=== PATIENT | male | born 2000 | race Caucasian/White ===

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

== ENCOUNTER 2019-08-27 21:01 | Emergency (ER) | payer OTHER ==
[~2019-08-27] VITALS: Ht 177.8 cm; Wt 70.3 kg
[2019-08-27 21:42] LABS: BASOPHILS ABSOLUTE AUTO 0.06 K/mm3 (0.00-0.23); BASOPHILS PERCENT AUTO 1 % (0-2); EOSINOPHILS ABSOLUTE AUTO 0.09 K/mm3 (0.00-0.68); EOSINOPHILS PERCENT AUTO 1 % (0-6); Hematocrit 37.7 % (37.0-53.0); Hemoglobin 12.1 g/dL (13.5-17.5); IMMATURE GRAN ABSOLUTE AUTO 0.03 K/mm3 (0.00-0.10); IMMATURE GRAN PERCENT AUTO 0 % (0-1); LYMPHOCYTES ABSOLUTE AUTO 3.24 K/mm3 (0.84-5.20); LYMPHOCYTES PERCENT AUTO 34 % (21-46); MONOCYTES ABSOLUTE AUTO 0.97 K/mm3 (0.16-1.47); MONOCYTES PERCENT AUTO 10 % (4-13); Mean Corpuscular HGB 27.4 pg (26.0-34.0); Mean Corpuscular HGB Conc 32.1 g/dL (31.5-36.5); Mean Corpuscular Volume 85 fL (80-100); NEUTROPHILS ABSOLUTE AUTO 5.21 K/mm3 (1.96-9.15); NEUTROPHILS PERCENT AUTO 54 % (41-73); Platelet Count 317 K/mm3 (150-400); RDW Coefficient Variation 13.2 % (11.7-14.2); RDW Standard Deviation 41.3 fL (35.1-46.3); Red Blood Cell Count 4.42 M/mm3 (4.30-5.90)
[2019-08-27 21:55] LABS: Alanine Aminotransfer (ALT/SGP 43 U/L (12-78); Albumin, Blood 3.3 g/dL (3.4-5.0); Albumin/Globulin Ratio 0.8 (0.8-1.8); Alk Phos 86 U/L (58-237); Anion Gap 3 mmol/L (6-16); Aspartate Aminotrans (AST/SGOT 46 U/L (12-37); Bilirubin, Total 0.5 mg/dL (0.1-1.0); Blood Urea Nitrogen 11 mg/dL (8-21); Bun/Creatinine Ratio 14.4 (12.0-20.0); CO2, Blood 28 mmol/L (21-32); Chloride, Blood 111 mmol/L (98-108); Creatinine, Blood 0.77 mg/dL (0.60-1.20); Ethanol (Alcohol), Blood, Med <3 mg/dL; Glomerular Filtration Rate >60 (60-); Glucose, Blood 97 mg/dL (70-99); Potassium, Blood 4.6 mmol/L (3.5-5.5); Salicylate <1.7 mg/dL (2.8-20.0); Sodium, Blood 142 mmol/L (136-145); Total Protein, Blood 7.3 g/dL (6.4-8.2)
[2019-08-27 21:59] LABS: Acetaminophen, Random <2.0 ug/mL (10.0-30.0)
[2019-08-27 23:32] LABS: U Amphetamine Screen Not Detected; U Barbituate Screen Not Detected; U Benzodiazapine Screen DETECTED; U Buprenorphine Screen Not Detected; U Cannabinoids Screen DETECTED; U Cocaine Screen Not Detected; U Methadone Screen Not Detected; U Methamphetamine Screen Not Detected; U Opiates Screen DETECTED; U Oxycodone Screen Not Detected; U Phencyclidine Screen Not Detected; U Propoxyphene Screen Not Detected
== END 2019-08-27 23:45 | disposition home or self-care (01) ==
LOC: ER 21:01
PROVIDERS: Emergency Medicine
DX: F19.129 Other psychoactive substance abuse with intoxication, unspecified (principal); F41.9 Anxiety disorder, unspecified; F32.9 Major depressive disorder, single episode, unspecified; F90.9 Attention-deficit hyperactivity disorder, unspecified type; Z87.891 Personal history of nicotine dependence; Z79.899 Other long term (current) drug therapy
CPT/HCPCS: 80053; 85025; 93005; 93010; 99285-25; G0480

== ENCOUNTER 2020-04-20 16:26 | Observation (INO) | payer OTHER ==
[~2020-04-20] VITALS: Ht 177.8 cm; Wt 66.4 kg
[~2020-04-20 16:26] MED LIST changes: +BUPRENORPHINE HC8 MG PO; +CEFU500T30 PO; +DIPH50 PO; +FAMO20 PO; +Hydroxyzine HCl50 MG PO; +MELATONIN5 M1 PO; +MGO400 MG PO; +NEURONTIN300 MG PO; +OLANZAPINE10 M2 PO; +OMEP20ER PO; +ONDA4ODT SL; +Potassium Chlo20 ME1 PO; +VISIBIOME PO; +VRAYLAR6 MG PO; +ZITHROMAX500 MG PO; +[UNRECOGNIZED DRUG - OTHER] PO
[2020-04-20 17:10] LABS: Calcium, Ionized (POC) 1.19 mmol/L (1.10-1.46); Chloride (POC) 98 mmol/L (98-108); Creatinine (POC) 0.9 mg/dL (0.8-1.3); Glucose (ISTAT POC) 95 mg/dL (70-99); Hemoglobin (POC) 13.9 g/dL (13.5-17.5); Potassium (POC) 3.7 mmol/L (3.5-5.5); Sodium (POC) 137 mmol/L (135-148); Total CO2 (POC) 24 mmol/L (21-32)
[2020-04-20] MEDS ORDERED: NEURONTIN300 MG PO (19:28)
[2020-04-20] MEDS ORDERED: CLON.1 PO (19:28)
[2020-04-20] MEDS ORDERED: GABA300 PO (19:28)
[2020-04-20] MEDS ORDERED: BUPRENORPHINE HC2 M1 SL (19:28)
[2020-04-20] MEDS ORDERED: OLANZAPINE PO (19:29)
[2020-04-20] MEDS ORDERED: PROPRANOLOL HCL80 MG PO (19:29)
[2020-04-20 19:38] LABS: Alanine Aminotransfer (ALT/SGP 54 U/L (12-78); Albumin, Blood 3.4 g/dL (3.4-5.0); Albumin/Globulin Ratio 0.8 (0.8-1.8); Alk Phos 129 U/L (50-136); Anion Gap 16 mmol/L (6-16); Aspartate Aminotrans (AST/SGOT 48 U/L (12-37); Bilirubin, Total 0.3 mg/dL (0.1-1.0); Blood Urea Nitrogen 10 mg/dL (8-24); Bun/Creatinine Ratio 12.3 (12.0-20.0); CO2, Blood 17 mmol/L (21-32); Calcium, Blood 9.1 mg/dL (8.5-10.1); Chloride, Blood 104 mmol/L (98-108); Creatinine, Blood 0.81 mg/dL (0.60-1.20); Ethanol (Alcohol), Blood, Med <3 mg/dL; Globulin, Blood 4.2 g/dL (2.2-4.0); Glomerular Filtration Rate >60 (60-); Glucose, Blood 92 mg/dL (70-99); Magnesium, Blood 2.2 mg/dL (1.6-2.4); Potassium, Blood 3.9 mmol/L (3.5-5.5); Sodium, Blood 137 mmol/L (136-145); Total Protein, Blood 7.6 g/dL (6.4-8.2)
[2020-04-20 21:28] LABS: Appearance, CSF Clear (Clear); Color, CSF No Color (No Color); Glucose, CSF 69 mg/dL (40-70)
[2020-04-20 21:29] LABS: RBC Count, CSF 2 /mm3 (0-0); WBC Count, CSF 5 /mm3 (0-5)
[2020-04-20 21:32] LABS: RBC Count, CSF 138 /mm3 (0-0); WBC Count, CSF 3 /mm3 (0-5)
[2020-04-20 21:33] LABS: Appearance, CSF Clear (Clear); Color, CSF No Color (No Color)
[2020-04-20 21:37] LABS: Lymphocytes, CSF 63 % (40-80); Monocytes, CSF 37 % (15-45)
[2020-04-20 21:41] LABS: Lymphocytes, CSF 36 % (40-80); Monocytes, CSF 49 % (15-45); Neutrophils, CSF 15 % (0-6)
[2020-04-20 21:44] LABS: Source, Urine Catheter
[2020-04-20 21:51] LABS: Appearance, Urine Clear (Clear); Bilirubin, Urine Neg (Neg); Blood, Urine Neg (Neg); Color, Urine Yellow (P-Yellow); Glucose Qualitative, Urine Neg (Neg); Ketones, Urine 1+ (Neg); Leukocyte Esterase, Urine Neg (Neg); Nitrite, Urine Neg (Neg); Protein, Urine Neg (Neg); Specific Gravity, Urine 1.015 (1.003-1.022); Urobilinogen, Urine NORM (Normal)
[2020-04-20 22:23] LABS: BASOPHILS ABSOLUTE AUTO 0.07 K/mm3 (0.00-0.23); BASOPHILS PERCENT AUTO 1 % (0-2); EOSINOPHILS ABSOLUTE AUTO 0.37 K/mm3 (0.00-0.68); EOSINOPHILS PERCENT AUTO 3 % (0-6); Hematocrit 42.8 % (37.0-53.0); Hemoglobin 13.3 g/dL (13.5-17.5); IMMATURE GRAN ABSOLUTE AUTO 0.05 K/mm3 (0.00-0.10); IMMATURE GRAN PERCENT AUTO 0 % (0-1); LYMPHOCYTES ABSOLUTE AUTO 3.39 K/mm3 (0.84-5.20); LYMPHOCYTES PERCENT AUTO 27 % (21-46); MONOCYTES ABSOLUTE AUTO 0.77 K/mm3 (0.16-1.47); MONOCYTES PERCENT AUTO 6 % (4-13); Mean Corpuscular HGB 26.2 pg (26.0-34.0); Mean Corpuscular HGB Conc 31.1 g/dL (31.5-36.5); Mean Corpuscular Volume 84 fL (80-100); Mean Platelet Volume 10.6 fL (9.1-12.4); NEUTROPHILS PERCENT AUTO 64 % (41-73); Platelet Count 334 K/mm3 (150-400); RDW Coefficient Variation 12.6 % (11.7-14.2); RDW Standard Deviation 38.6 fL (35.1-46.3); Red Blood Cell Count 5.08 M/mm3 (4.30-5.90); White Blood Cell Count 12.75 K/mm3 (4.00-11.30)
[2020-04-20 22:35] LABS: Cryptococcus Neoformans/Gattii Not Detected (NOT DETECT); Enterovirus Not Detected (NOT DETECT); Escherichia Coli K1 Not Detected (NOT DETECT); Haemophilus Influenza Not Detected (NOT DETECT); Herpes Simplex Virus 1 Not Detected (NOT DETECT); Herpes Simplex Virus 2 Not Detected (NOT DETECT); Human Herpesvirus 6 Not Detected (NOT DETECT); Human Parechovirus Not Detected (NOT DETECT); Listeria Monocytogenes Not Detected (NOT DETECT); Neisseria Meningitidis Not Detected (NOT DETECT); Streptococcus Agalactiae Not Detected (NOT DETECT); Streptococcus Pneumoniae Not Detected (NOT DETECT); Varicella Zoster Virus Not Detected (NOT DETECT)
--- NOTE | 2020-04-20 23:55 | NUR ---
PT ARRIVES TO ICU 1 VIA GURNEY FROM ER, AWAKE AND ORIENTED ON ARRIVAL, DENIES PAIN, DENIES NAUSEA, DENIES CP/PRESSURE, DENIES SOB/DYSPNEA. STATES THAT NOTHING HAS CHANGED FROM PRIOR ADMISSION IN SEPTEMBER. STATES THAT HE DOES HAVE A HISTORY OF SEIZURES HOWEVER THEY ARE INFREQUENT AND THAT HE DOES NOT TAKE MEDS FOR THEM, LAST SEIZURE WAS APPROXIMATELY 1 MONTH AGO. HE TRANSFERS SELF TO BED AND IS COOPERATIVE WITH CARE AT THIS TIME. HE DOES ADMIT TO HEROIN USE AND STATES THAT IT IS OK TO GIVE HIS MOM INFORMATION BUT NOT YET AND THAT HE DOESN'T WANT HER TO KNOW THAT HE OVERDOSED. ON FURTHER REVIEW WITH PT, HE DOES NOT WISH TO RELEASE ANY INFORMATION TO ANYONE, HE WILL TELL THEM ANY INFORMATION THAT HE IS OK WITH THEM HAVING.
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
--- NOTE | 2020-04-21 01:20 | NUR ---
PT IS DISCHARGED AMA, STATES THAT HE DOES UNDERSTAND THE RISK OF FURTHER SEIZURES, RESPIRATORY ARREST AND AND THAT THERE ARE NO BENEFITS TO LEAVING AMA. PT AMBULATES TO EMERGENCY ROOM LOBBY AT THIS TIME.
[2020-04-21 03:09] LABS: U Amphetamine Screen DETECTED; U Barbituate Screen Not Detected; U Benzodiazapine Screen Not Detected; U Buprenorphine Screen Not Detected; U Cannabinoids Screen DETECTED; U Cocaine Screen Not Detected; U Methadone Screen Not Detected; U Methamphetamine Screen DETECTED; U Opiates Screen DETECTED; U Oxycodone Screen Not Detected; U Phencyclidine Screen Not Detected; U Propoxyphene Screen Not Detected
== END 2020-04-21 01:20 | disposition left against medical advice (07) ==
LOC: ER 16:26 → ICUW 16:27 → ICUE 16:27 → ER 23:41 → ICUW 23:41 → ICUE 23:50
PROVIDERS: Emergency Medicine; ADMIT Internal Medicine
DX: T40.1X1A Poisoning by heroin, accidental (unintentional), initial encounter (principal); G92 Toxic encephalopathy; Y92.810 Car as the place of occurrence of the external cause; E86.0 Dehydration; Z53.29 Procedure and treatment not carried out because of patient's decision for other reasons
CPT/HCPCS: 36415; 51701; 62270; 70450; 71045; 80047; 80053; 81003; 82945; 83605; 83735; 84157; 85014; 85025; 87040; 87070; 87205; 87483; 89051; 93005; 93010; 96365-59; 96367-59; 96368; 96375-59; 99285-25; G0378; G0480; J0696; J1953; J2060; J3370; J7030

== ENCOUNTER 2020-06-18 19:39 | Emergency (ER) | payer OTHER ==
[~2020-06-18] VITALS: Ht 177.8 cm; Wt 59.0 kg
[~2020-06-18 19:39] MED LIST changes: +BUPRENORPHINE HC2 M1 SL; +GABA300 PO; +OLANZAPINE PO; +PROPRANOLOL HCL80 MG PO
== END 2020-06-18 23:50 | disposition left against medical advice (07) ==
LOC: ER 19:39
DX: S60.552A Superficial foreign body of left hand, initial encounter (principal); Z53.21 Procedure and treatment not carried out due to patient leaving prior to being seen by health care provider; X58.XXXA Exposure to other specified factors, initial encounter
CPT/HCPCS: 73090; 99283-25

== ENCOUNTER 2021-03-04 22:47 | Inpatient (IN) | payer OTHER ==
[~2021-03-04] VITALS: Ht 185.4 cm; Wt 72.9 kg
[2021-03-04 23:25] LABS: Source, Urine Catheter
[2021-03-04 23:25] LABS: Hematocrit 49.9 % (37.0-53.0); Hemoglobin 15.9 g/dL (13.5-17.5); Mean Corpuscular HGB 27.8 pg (26.0-34.0); Mean Corpuscular HGB Conc 31.9 g/dL (31.5-36.5); Mean Corpuscular Volume 87 fL (80-100); Mean Platelet Volume 11.4 fL (9.1-12.4); Platelet Count 360 K/mm3 (150-400); RDW Coefficient Variation 12.8 % (11.7-14.2); RDW Standard Deviation 41.1 fL (35.1-46.3); Red Blood Cell Count 5.72 M/mm3 (4.30-5.90); White Blood Cell Count 41.48 K/mm3 (4.00-11.30)
[2021-03-04 23:33] LABS: Bilirubin, Urine Neg (Neg); Blood, Urine 5+ (Neg); Glucose Qualitative, Urine Neg (Neg); Ketones, Urine 2+ (Neg); Leukocyte Esterase, Urine Neg (Neg); Nitrite, Urine Neg (Neg); Protein, Urine 3+ (Neg); Specific Gravity, Urine 1.025 (1.003-1.022); Urobilinogen, Urine NORM (Normal)
[2021-03-04 23:47] LABS: BAND PERCENT MAN 7 % (0-8); BASOPHILS PERCENT MAN 0 % (0-2); EOSINOPHILS PERCENT MAN 0 % (0-6); LYMPHOCYTES ABSOLUTE MAN 2.07 K/mm3 (0.84-5.20); LYMPHOCYTES PERCENT MAN 5 % (21-46); METAMYELOCYTE ABSOLUTE MAN 0.41 K/mm3 (0.00-0.00); METAMYELOCYTE PERCENT MAN 1 % (0-0); MONOCYTES ABSOLUTE MAN 2.48 K/mm3 (0.16-1.47); MONOCYTES PERCENT MAN 6 % (4-13); SEG NEUTROPHILS PERCENT MAN 81 % (41-73); TOTAL CELLS COUNTED 100
[2021-03-04 23:50] LABS: Ethanol (Alcohol), Blood, Med <3 mg/dL; Salicylate 2.6 mg/dL (2.8-20.0); Troponin I <0.015 ng/mL (0.000-0.040)
[2021-03-04 23:50] LABS: Appearance, Urine Hazy (Clear); Color, Urine Pale Yellow (P-Yellow)
[2021-03-04 23:52] LABS: Amorphous Heavy (0-Heavy); Bacteria Few /hpf; Squamous Epithelial Cells Mod /hpf (Few); U Amphetamine Screen DETECTED; U Barbituate Screen Not Detected; U Benzodiazapine Screen Not Detected; U Buprenorphine Screen Not Detected; U Cannabinoids Screen DETECTED; U Cocaine Screen Not Detected; U Methadone Screen Not Detected; U Methamphetamine Screen DETECTED; U Opiates Screen DETECTED; U Oxycodone Screen Not Detected; U Phencyclidine Screen Not Detected; U Propoxyphene Screen Not Detected; White Blood Cells, Urine Not Seen /hpf (0-5)
[2021-03-04 23:57] LABS: Acetaminophen, Random <2.0 ug/mL (10.0-30.0)
[2021-03-05 00:04] LABS: Alanine Aminotransfer (ALT/SGP 37 U/L (12-78); Albumin, Blood 4.3 g/dL (3.4-5.0); Albumin/Globulin Ratio 0.9 (0.8-1.8); Alk Phos 145 U/L (50-136); Anion Gap 22 mmol/L (6-16); Aspartate Aminotrans (AST/SGOT 33 U/L (12-37); Bilirubin, Total 0.2 mg/dL (0.1-1.0); Blood Urea Nitrogen 12 mg/dL (8-24); Bun/Creatinine Ratio 8.6 (12.0-20.0); CO2, Blood 9 mmol/L (21-32); Calcium, Blood 9.2 mg/dL (8.5-10.1); Chloride, Blood 107 mmol/L (98-108); Creatinine, Blood 1.39 mg/dL (0.60-1.20); Glomerular Filtration Rate >60 (60-); Glucose, Blood 154 mg/dL (70-99); Potassium, Blood 4.8 mmol/L (3.5-5.5); Sodium, Blood 138 mmol/L (136-145); Total Protein, Blood 9.3 g/dL (6.4-8.2)
[2021-03-05 00:49] LABS: Automated CSF RBC Count 0.002 M/mm3 (0-0); WBC Count, CSF 10 /mm3 (0-5)
[2021-03-05 00:56] LABS: Glucose, CSF 113 mg/dL (40-70)
[2021-03-05 01:12] LABS: Appearance, CSF Clear (Clear); Color, CSF No Color (No Color)
[2021-03-05 01:13] LABS: RBC Count, CSF 540 /mm3 (0-0); WBC Count, CSF 7 /mm3 (0-5)
[2021-03-05 01:35] LABS: Color, CSF No Color (No Color); Lymphocytes, CSF 9 % (40-80); Monocytes, CSF 16 % (15-45); Neutrophils, CSF 75 % (0-6)
[2021-03-05 01:36] LABS: Appearance, CSF Clear (Clear)
[2021-03-05 01:54] LABS: Influenza A, PCR NEGATIVE (NEGATIVE); Influenza B, PCR NEGATIVE (NEGATIVE); Resp Syncytial Virus, PCR NEGATIVE (NEGATIVE); SARS-Cov-2 (COVID-19) PCR, MMC NEGATIVE (NEGATIVE)
[2021-03-05 02:00] LABS: PCO2 Arterial 23.6 mmHg (35-45); PO2 Arterial 255 mmHg (80-100); pH Blood Arterial 7.45 (7.35-7.45)
[2021-03-05 02:34] LABS: Cryptococcus Neoformans/Gattii Not Detected (NOT DETECT); Enterovirus Not Detected (NOT DETECT); Escherichia Coli K1 Not Detected (NOT DETECT); Haemophilus Influenza Not Detected (NOT DETECT); Herpes Simplex Virus 1 Not Detected (NOT DETECT); Herpes Simplex Virus 2 Not Detected (NOT DETECT); Human Herpesvirus 6 Not Detected (NOT DETECT); Human Parechovirus Not Detected (NOT DETECT); Listeria Monocytogenes Not Detected (NOT DETECT); Neisseria Meningitidis Not Detected (NOT DETECT); Streptococcus Agalactiae Not Detected (NOT DETECT); Streptococcus Pneumoniae Not Detected (NOT DETECT); Varicella Zoster Virus Not Detected (NOT DETECT)
[2021-03-05 03:22] LABS: BASOPHILS ABSOLUTE AUTO 0.09 K/mm3 (0.00-0.23); BASOPHILS PERCENT AUTO 0 % (0-2); EOSINOPHILS PERCENT AUTO 0 % (0-6); Hemoglobin 13.5 g/dL (13.5-17.5); IMMATURE GRAN ABSOLUTE AUTO 0.51 K/mm3 (0.00-0.10); IMMATURE GRAN PERCENT AUTO 1 % (0-1); LYMPHOCYTES ABSOLUTE AUTO 2.33 K/mm3 (0.84-5.20); LYMPHOCYTES PERCENT AUTO 6 % (21-46); MONOCYTES ABSOLUTE AUTO 2.35 K/mm3 (0.16-1.47); MONOCYTES PERCENT AUTO 6 % (4-13); Mean Corpuscular HGB 28.1 pg (26.0-34.0); Mean Corpuscular HGB Conc 33.8 g/dL (31.5-36.5); Mean Corpuscular Volume 83 fL (80-100); Mean Platelet Volume 10.9 fL (9.1-12.4); NEUTROPHILS ABSOLUTE AUTO 31.27 K/mm3 (1.96-9.15); NEUTROPHILS PERCENT AUTO 86 % (41-73); Platelet Count 272 K/mm3 (150-400); RDW Coefficient Variation 12.7 % (11.7-14.2); Red Blood Cell Count 4.81 M/mm3 (4.30-5.90); White Blood Cell Count 36.55 K/mm3 (4.00-11.30)
[2021-03-05 04:20] LABS: Alanine Aminotransfer (ALT/SGP 31 U/L (12-78); Albumin, Blood 3.4 g/dL (3.4-5.0); Albumin/Globulin Ratio 0.9 (0.8-1.8); Alk Phos 102 U/L (50-136); Anion Gap 13 mmol/L (6-16); Aspartate Aminotrans (AST/SGOT 37 U/L (12-37); Bilirubin, Total 0.6 mg/dL (0.1-1.0); Blood Urea Nitrogen 11 mg/dL (8-24); Bun/Creatinine Ratio 10.7 (12.0-20.0); CO2, Blood 18 mmol/L (21-32); Calcium, Blood 8.3 mg/dL (8.5-10.1); Chloride, Blood 111 mmol/L (98-108); Creatinine, Blood 1.03 mg/dL (0.60-1.20); Globulin, Blood 3.6 g/dL (2.2-4.0); Glomerular Filtration Rate >60 (60-); Glucose, Blood 96 mg/dL (70-99); Potassium, Blood 3.9 mmol/L (3.5-5.5); Sodium, Blood 142 mmol/L (136-145)
--- NOTE | 2021-03-05 06:28 | NUR ---
END OF SHIFT SUMMARY: Neuro: pt very difficult to sedated, on propofol and precedex for sedation, gave multiple doses of 1 mg Ativan for seizure like activity. pt.'s family expressed their concern regarding pt.'s sedation, stated that in the past it has been difficult to sedate. PERRLA 3, bilateral, brisk. does not follow commands but does sit up in bed, pulling on restraints, disrobing and coughing. moves all extremities spontenously. Pt appears to be having seizures with face and eyebrows twitching/spasticity. Resp: on AC/VC FiO2 30% Peep 5. lung sounds clear bilaterally. pt does have a cough and gag. Cardiac: pt HR 90 - 120's, hypertensive when awake, pulses are palpable, febrile at 100.2 per swan temperature, no edema GI/: pt vomitted multiple times after admission to ICU, OGT to intermittent suction, hypoactive bowel sounds, no bm, swan catheter patent and draining to gravity. Integ: has many acne scars on pt.'s back and abdomen area. pt does seem to have acne or rash that is blistering and crusting on face. Some minor abrasions on nose and face due to fall while at home. Recommendation: possible EEG to determine seizure activity, increase sedation
--- NOTE | 2021-03-05 15:55 | NUR ---
UPDATE: ASSUMED CARE OF PT AT 0700. AT 0700 PT IS MOVING HEAD FROM SIDE TO SIDE, FIGHTING RESTRAINTS AND ATTEMPTING TO SIT UP IN BED. CALLED, ORDERS TO START VERSED DRIP GIVEN. ATIVAN ORDERED CHANGED TO 1-4MG/HR NEEDED FOR AGITATION AND SEZUIRES. SPOKE TO THIS AM, ORDERS TO KEEP PT WELL SEDATED TO PREVENT SEZUIRE LIKE ACTIVITY AND INCREASE VENT COMPLIANCE. PT SWITCHED TO SPONTANEOUS VENT MODE AT APPROX 0800, PS 5, PEEP 5, FiO2 30% , PT IS ABLE TO TOLERATE MODE WELL. PT HAS BEEN IN SR WITH HR IN THE 80'S, SBP 80-100'S, MAP ABOVE 65. PT WAS HAVING BLOOD TINGED DRAINAGE FROM OGT, AWARE, PPI ON BOARD. ORDERS TO START TUBE FEED, INITATED AT 1300, CURRENTLY RUNNING AT 20ML/HR, FLUSHES 30ML EVERY 4 HOURS, TUBE FEED SET GOAL IS 40ML/HR. SINCE 1400, PT HAS NOT BEEN HAVING ANY SEZUIRE LIKE ACTIVITY, NOR ATTEMPTING TO FIGHT RESTRAINTS, SEDATION TITRATED DOWN, SEE FLOW SHEET. WILL CONTINUE TO MONITOR.
--- NOTE | 2021-03-05 17:57 | NUR ---
SHIFT SUMMARY: SEE PREVIOUS NOTE. PT SWITCHED BACK TO ACVC VENT MODE DUE TO LOW tV ON SPONTANEOUS, CURRENT SETTINGS: RR 14, tV 500, PEEP 5, FiO2 30% SpO2 ABOVE 90% SEDATION TITRATED DOWN, VERSED OFF, PROPOFOL AT 50MCG/KG/MIN, PRECEDEX 0.6MCG/KG/HR. REQUESTED TO USE ATIVAN PUSHES IF NEEDED FOR AGITATION/SEZUIRES. GAG/COUGH PRESENT, RESPONDS TO PAINFUL STIMULI. PUPILS ARE 2MM. SLUGGISH RESPONSE TO LIGHT, EQUAL IN SIZE. NON-PURPOSFUL MOVEMENTS TO ALL EXTREMEITES. PT HAS BEEN IN SR WITH HR BETWEEN 60-70, BP STABLE. TUBE FEED RUNNING AT 20ML/HR. ACTIVE BOWEL TONES IN ALL QUADRANTS, NO BM THIS SHIFT. TEMP MCKEON PATENT AND DRAINING TO GRAVITY, GREEN TINGED URINE NOTED 2100ML OUTPUT. PT CONTINUES TO BE IN BILAT SWR, BED AT LOWEST LEVEL. PT'S MOTHER AT BEDSIDE.
--- NOTE | 2021-03-05 19:30 | NUR ---
ASSUMED CARE PATIENT LYING IN BED INTUBATED AND SEDATED W/ PROPOFOL @ 45MCG/KG/MIN AND PRECEDEX @ 0.6MCG/KG/HR; VERSED ON SB. LR @ 125ML/HR AND NS TKO INFO INTO CL. IV ON LT AC AND RT WRIST SALINE LOCKED. TF INF @ 20ML/HR W/ GOAL RATE OF 40ML/HR. MCKEON PATENT AND DRAINING GREEN/CLEAR URINE TO GRAVITY. PATIENT MOVES HEAD SIDE TO SIDE OCCASSIONALLY, BUT DOES NOT OPEN EYES OR FOLLOW COMMANDS. REPORT COMPLETED W/ DAYSHIFT RN
[2021-03-06 01:55] LABS: Vancomycin, Trough 10.4 ug/mL (5.0-10.0)
[2021-03-06 03:42] LABS: BASOPHILS ABSOLUTE AUTO 0.05 K/mm3 (0.00-0.23); BASOPHILS PERCENT AUTO 0 % (0-2); EOSINOPHILS ABSOLUTE AUTO 0.06 K/mm3 (0.00-0.68); EOSINOPHILS PERCENT AUTO 0 % (0-6); Hemoglobin 11.9 g/dL (13.5-17.5); IMMATURE GRAN ABSOLUTE AUTO 0.05 K/mm3 (0.00-0.10); IMMATURE GRAN PERCENT AUTO 0 % (0-1); LYMPHOCYTES ABSOLUTE AUTO 3.54 K/mm3 (0.84-5.20); LYMPHOCYTES PERCENT AUTO 25 % (21-46); MONOCYTES ABSOLUTE AUTO 1.38 K/mm3 (0.16-1.47); MONOCYTES PERCENT AUTO 10 % (4-13); Mean Corpuscular HGB 27.7 pg (26.0-34.0); Mean Corpuscular HGB Conc 33.1 g/dL (31.5-36.5); Mean Corpuscular Volume 84 fL (80-100); Mean Platelet Volume 11.3 fL (9.1-12.4); NEUTROPHILS ABSOLUTE AUTO 9.32 K/mm3 (1.96-9.15); NEUTROPHILS PERCENT AUTO 65 % (41-73); Platelet Count 214 K/mm3 (150-400); RDW Coefficient Variation 13.4 % (11.7-14.2); Red Blood Cell Count 4.29 M/mm3 (4.30-5.90)
[2021-03-06 04:12] LABS: Anion Gap 6 mmol/L (6-16); Blood Urea Nitrogen 8 mg/dL (8-24); Bun/Creatinine Ratio 10.9 (12.0-20.0); CO2, Blood 25 mmol/L (21-32); Calcium, Blood 8.6 mg/dL (8.5-10.1); Chloride, Blood 115 mmol/L (98-108); Creatinine, Blood 0.74 mg/dL (0.60-1.20); Glomerular Filtration Rate >60 (60-); Glucose, Blood 105 mg/dL (70-99); Magnesium, Blood 1.8 mg/dL (1.6-2.4); Phosphorus, Blood 3.3 mg/dL (2.5-4.9); Potassium, Blood 3.5 mmol/L (3.5-5.5); Sodium, Blood 146 mmol/L (136-145)
--- NOTE | 2021-03-06 05:47 | NUR ---
SHIFT SUMMARY PATIENTS MOTHER CALLED AT BEGINNING OF SHIFT. UPDATES ON PATIENT CONDITION GIVEN AND QUESTIONS ANSWERED. SEDATION INCREASED DURING SHIFT, BUT NOW TITRATED BACK DOWN; PROPOFOL @ 45MCG/KG/MIN AND PRECEDEX @ 0.8MCG/KG/HR, VERSED ON SB T/O SHIFT. NS INF TKO TO RT IJ CL, ABBIE PERIPHERAL IV'S SALINE LOCKED. TF INCREASED TO GOAL RATE OF 40ML/HR. VENT REMAINED ON AC/VC 14/500/5/30% T/O SHIFT, BUT CHANGED TO PS THIS MORNING OF 10/5 30% FIO2. SPO2 MAINTAINING IN HIGH 90'S. PATIENT HAD INTERMITTENT TREMORS DURING SHIFT; ATIVAN 4MG IV X 1 GIVEN. NO OTHER MAJOR CHANGES DURING SHIFT.
--- NOTE | 2021-03-06 06:12 | NUR ---
VERSED WASTE 12.5MG/25ML VERSED WASTED W/ MCKAY PUENTES.
--- NOTE | 2021-03-06 10:46 | NUR ---
UPDATE: ASSUMED CARE OF PT AT 0700, PT WAS INTUBATED/SEDATED, PROPOFOL AT 45MCG/KG/MIN, PRECEDEX AT 1MCG/KG/HR. PT BECOMING AGITATED, SITTING UP IN BED, PULLING ON RESTRAINTS. AT APPROX 0820, PROPOFOL UP TO 60MCG/KG/MIN. AT BEDSIDE AT APPROX 0900, ORDERS TO STOP PROPOFOL AND PLAN OF EXTUBATION, TUBE FEED STOPPED. BY 0920 PT WAS SITTING UP IN BED AND ATTEMPTING TO REACH FOR TUBE, RT CALLED TO BEDSIDE. PT HAD SMALL AMOUNT OF GREEN BILE/TUBE FEED AROUND ETT, OGT CONNECTED TO SUCTION, ORAL SUCTION GIVEN. PT EXUBATED AT APPROX 0927, PT MOANING AND THRASHING FROM SIDE TO SIDE, ATIVAN GIVEN. PRECEDEX UP TO 1.4MCG/KG/MIN. RESTRAINTS STILL IN PLACE TO PROTECT LINES AND TUBES. [facility] CENTRAL LINE DRESSING CHANGED.
--- NOTE | 2021-03-06 11:25 | NUR ---
UPDATE: HR DROPPED TO MID 40'S-50'S, PT HAVING IRREGULAR RATE, SLIGHT PAUSES NOTED. PRECEDEX TURNED OFF. AFTER 10 MINUTES PT HR BACK TO INTO THE 70'S AND IS IN NSR. WILL USE ATIVAN PUSHES FOR AGITATION.
--- NOTE | 2021-03-06 14:28 | NUR ---
UPDATE: AT APPROX 1230, PT MOANING/YELLING INCOHERENTLY, UNABLE TO FOLLOW COMMANDS. PT CAME OUT OF SOFT RESTRAINTS, SITTING UP IN BED, ATTEMPTING TO CLIMB OUT, KICKING. TAT X4 EXT RESTRAINTS IN PLACE. AWARE. ZYPREXA ORDERED. AT 1415 PT SITTING UP IN BED MOANING, EYES CLOSED, UNABLE TO COMMUNICATE/FOLLOW COMMANDS. FENTANYL AND ATIVAN GIVEN PER MAR WITH GOOD EFFECT. PRECEDEX TURNED OFF HR WAS IN THE 50'S AND HAVING FREQUENT PAUSES.
--- NOTE | 2021-03-06 16:16 | NUR ---
UPDATE: PT CONTINUES TO BE AGITATED AND FIGHTING RESTRAINTS. CALLED, ORDER FOR HALDOL GIVEN. PT GIVEN 10MG OF HALDOL IV WITH NO EFFECT. SECURITY AT BEDSIDE. CALLED ONCE AGAIN, ORDERS TO GIVEN KETAMINE 75MG IV. KETAMINE GIVEN SLOWLY, WITH GOOD EFFECT, PT MAINTAING PATENT AIRWAY, SPO2 ABOVE 90% BP STABLE
--- NOTE | 2021-03-06 18:13 | NUR ---
SHIFT SUMMARY: SEE PREVIOUS NOTES. PT CONTINUES TO BE AGITATED, MOANS AND MOVING AROUND IN BED. PT DOES NOT FOLLOW ANY COMMANDS. PT IS IN TAT X4 RESTRAINTS TO PROTECT ESSENTAIL LINES AND TUBES AND FOR PATEINT SAFTEY. PT HAS BEEN RECEVING ATIVAN AND FENTANYL Q1HR, WITH LITTLE EFFECT. HALDOL AND KATAMINE Q4HRS FOR AGITATION. PT WAS ABLE TO STATE " IT HURTS" ONCE THIS SHIFT, NO OTHER COHERENT SPEECH NOTED. PT REMAINS ON 2L OF O2 VIA NC WITH SPO2 ABOVE 90% PT HAS BEEN IN SINUS ARRYTHMIA, HR 60'S-70'S. PT ON PRECEDEX AT 0.3MCG/KG/HR, AT HIGHER DOSES HR WILL DROP INTO THE MID 40'S. BP STABLE, AFEBRILE. MOTHER CAME TO BEDSIDE, SEEMED TO STIMULATE PT AT TIMES AND PT BECAME MORE AGITATED. MCKEON PATENT AND DRAINING TO GAVITY, URINE GREEN TINGED. BED AT LOWEST LEVEL, WILL CONTINUE TO MONITOR UNTIL REPORT IS GIVEN TO ONCOMING SHIFT.
--- NOTE | 2021-03-06 19:30 | NUR ---
ASSUMED CARE PATIENT LYING IN BED WITH EYES CLOSED, MOANING OCCASSIONALLY AND PULLING ON RESTRAINTS INTERMITTENTLY. SPO2 HIGH 90'S-100% ON 2LPM NC. PATIENT DOES NOT FORM WORDS AND DOES NOT FOLLOW COMMANDS. TUFF CUFF RESTRAINTS X [address] TO PROTECT PATIENT AND VITAL LINES. CL TO RT IJ PATENT AND INF PRECEDEX @ 0.3MCG/KG/HR, D5 1/2NS @ 100ML/HR, AND NS TKO. ABBIE PERIPHERAL 20G IV IN PLACE W/ NOTHING INF. MCKEON PATENT AND DRAINING CLEAR YELLOW URINE TO GRAVITY. REPORT COMPLETED W/ DAYSHIFT RN
--- NOTE | 2021-03-06 20:32 | NUR ---
VERSED GTT PATIENT REMAINS AGITATED; YELLING, CRYING, SITTING UP IN BED, PULLING ON RESTRAINTS DESPITE ORDERED MEDICATIONS AND ENVIRONMENTAL MODIFICATIONS/STIMULATION REDUCTION. UNABLE TO INCREASE PRECEDEX D/T BRADYCARDIC ARRHYTHMIA WITH INCREASED TITRATION. CALL MADE TO DR. JOHNSON; ORDER OBTAINED FOR VERSED GTT.
--- NOTE | 2021-03-07 01:36 | NUR ---
NEURO CHANGE WHILE PLACING A MEPILEX DRESSING ON PATIENTS RT ELBOW, PATIENT BEGAN YELLING AND THRASHING IN BED. PATIENT SAT UP IN BED LOOKED AT THE NURSE IN THE EYES AND CLEARLY YELLED "GET OFF OF MY BED" AND "STOP TOUCHING ME". WHEN PATIENT WAS ASKED IF HE KNEW WHERE HE WAS HE REPLIED "[facility]"; WHEN ASKED IF HE NORMALLY ACTS IN THIS MANNER HE REPLIED "YES", WHEN ASKED IF IT WORKS FOR HIM HE REPLIED "WELL, Y[facility]". PATIENT HAS NOT SPOKEN SINCE THIS ENCOUNTER AND CONTINUES TO INTERMITTENTLY YELL AND THRASH IN THE BED, PULLING AT RESTRAINTS.
[2021-03-07 01:45] LABS: Vancomycin, Trough 11.5 ug/mL (5.0-10.0)
[2021-03-07 03:21] LABS: BASOPHILS PERCENT AUTO 1 % (0-2); EOSINOPHILS ABSOLUTE AUTO 0.22 K/mm3 (0.00-0.68); EOSINOPHILS PERCENT AUTO 2 % (0-6); Hematocrit 37.1 % (37.0-53.0); Hemoglobin 12.3 g/dL (13.5-17.5); IMMATURE GRAN ABSOLUTE AUTO 0.05 K/mm3 (0.00-0.10); IMMATURE GRAN PERCENT AUTO 0 % (0-1); LYMPHOCYTES ABSOLUTE AUTO 5.13 K/mm3 (0.84-5.20); LYMPHOCYTES PERCENT AUTO 39 % (21-46); MONOCYTES ABSOLUTE AUTO 1.29 K/mm3 (0.16-1.47); MONOCYTES PERCENT AUTO 10 % (4-13); Mean Corpuscular HGB 27.9 pg (26.0-34.0); Mean Corpuscular HGB Conc 33.2 g/dL (31.5-36.5); Mean Corpuscular Volume 84 fL (80-100); Mean Platelet Volume 11.2 fL (9.1-12.4); NEUTROPHILS ABSOLUTE AUTO 6.27 K/mm3 (1.96-9.15); NEUTROPHILS PERCENT AUTO 48 % (41-73); Platelet Count 238 K/mm3 (150-400); RDW Coefficient Variation 13.1 % (11.7-14.2); RDW Standard Deviation 40.4 fL (35.1-46.3); Red Blood Cell Count 4.41 M/mm3 (4.30-5.90); White Blood Cell Count 13.06 K/mm3 (4.00-11.30)
[2021-03-07 03:38] LABS: Alanine Aminotransfer (ALT/SGP 57 U/L (12-78); Albumin, Blood 3.1 g/dL (3.4-5.0); Albumin/Globulin Ratio 0.8 (0.8-1.8); Alk Phos 82 U/L (50-136); Anion Gap 5 mmol/L (6-16); Aspartate Aminotrans (AST/SGOT 176 U/L (12-37); Bilirubin, Total 0.5 mg/dL (0.1-1.0); Blood Urea Nitrogen 3 mg/dL (8-24); Bun/Creatinine Ratio 4.4 (12.0-20.0); CO2, Blood 29 mmol/L (21-32); Calcium, Blood 8.9 mg/dL (8.5-10.1); Chloride, Blood 112 mmol/L (98-108); Creatinine, Blood 0.68 mg/dL (0.60-1.20); Globulin, Blood 3.8 g/dL (2.2-4.0); Glomerular Filtration Rate >60 (60-); Glucose, Blood 92 mg/dL (70-99); Magnesium, Blood 1.4 mg/dL (1.6-2.4); Phosphorus, Blood 3.4 mg/dL (2.5-4.9); Potassium, Blood 3.4 mmol/L (3.5-5.5); Sodium, Blood 146 mmol/L (136-145); Total Protein, Blood 6.9 g/dL (6.4-8.2)
--- NOTE | 2021-03-07 06:06 | NUR ---
SHIFT SUMMARY PATIENT DIFFICULT TO CONSOLE DURING SHIFT. CONSTANTLY YELLING, THRASHING IN BED, PULLING AT RESTRAINTS. STARTED ON VERSED GTT. VERSED NOW @ 2MG/HR, PRECEDEX @ 0.1MCG/KG/HR, D5 1/2 NS @ 100ML/HR, AND NS TKO X 2 INF INTO RT IJ CL. DRESSING LIFTING AT CL SITE; REINFORCED WITH TAPE DUE TO SAFETY CONCERNS RELATED TO CHANGING OUT CL DRESSING COMPLETELY. PATIENT WAS ABLE TO TALK TO STAFF PERIODICALLY T/O SHIFT WITH ONE EPISODE OF YELLING AT STAFF. SEE EARLIER NURSE NOTE. RESTRAINTS REMAIN IN PLACE TO PROTECT PATIENT AND VITAL LINES. HR DROPPED TO LOW 40'S FOR A PERIOD OF APPROXIMATELY 30 MINUTES W/ SELF CORRECTION BACK TO 60'S-80'S. MCKEON REMAINS PATENT AND DRAINING YELLOW URINE WITH GREEN TINGE TO GRAVITY. PATIENT REQUIRED MULTIPLE IV PUSHES OF ATIVAN, KETAMINE, AND FENTANYL DURING SHIFT TO MAINTAIN CONSOLABILITY AND SAFETY. ONE DOSE OF HALDOL ADMINISTERED. NO OTHER MAJOR CHANGES DURING SHIFT.
--- NOTE | 2021-03-07 18:18 | NUR ---
PT REMAINED AGITATED TODAY. TREATED MULTIPLE TIMES WITH PRN MEDICATION. SEE MAR. CURRENTLY ON VERSED INFUSION AT 6MG/HR. HE WAS ABLE TO ANSWER SOME SIMPLE QUESTIONS - WHEN ASKED WHERE HE WAS, HE STATED "HOSPITAL." HE WAS ABLE TO SAY WHO HIS MOM WAS WHEN HE WAS IN THE ROOM. STILL UNABLE TO COMMUNICATE HIS NEEDS. THIS EVENING, HE SEEMS SLIGHTLY LESS AGITATED - HE IS WAKING UP AND TRYING TO GET OUT OF BED, BUT IS NOT SCREAMING OR TRASHING. PRECEDEX HAS BEEN OFF SINCE THIS AFTERNOON DUE TO HIS SINUS ARRYTHMIA THAT IS PRESENT WHEN PRECEDEX IS RUNNING. PT IS NOW SB WITH HR IN THE MID 50S. HYPERTENSION WITH SBP 170S DISCUSSED WITH DR. JOHNSON TODAY, NO NEW ORDERS FOR TREATMENT.
--- NOTE | 2021-03-07 19:52 | NUR ---
ASSUMED CARE: Pt started screaming and trying to get out of bed after report from day shift RN. Immediately tried to console and reason with pt but unable to follow commands and continued to scream. Pt still in 4x restraints. 4 mg Ativan and 10 mg Haldol given at around 1940. Pt now resting comfortably in bed.
[2021-03-08 00:47] LABS: BASOPHILS ABSOLUTE AUTO 0.07 K/mm3 (0.00-0.23); BASOPHILS PERCENT AUTO 1 % (0-2); EOSINOPHILS ABSOLUTE AUTO 0.13 K/mm3 (0.00-0.68); EOSINOPHILS PERCENT AUTO 1 % (0-6); Hematocrit 37.8 % (37.0-53.0); Hemoglobin 12.7 g/dL (13.5-17.5); IMMATURE GRAN ABSOLUTE AUTO 0.03 K/mm3 (0.00-0.10); IMMATURE GRAN PERCENT AUTO 0 % (0-1); LYMPHOCYTES PERCENT AUTO 30 % (21-46); MONOCYTES ABSOLUTE AUTO 0.97 K/mm3 (0.16-1.47); MONOCYTES PERCENT AUTO 9 % (4-13); Mean Corpuscular HGB 27.9 pg (26.0-34.0); Mean Corpuscular HGB Conc 33.6 g/dL (31.5-36.5); Mean Corpuscular Volume 83 fL (80-100); Mean Platelet Volume 10.7 fL (9.1-12.4); NEUTROPHILS ABSOLUTE AUTO 6.17 K/mm3 (1.96-9.15); NEUTROPHILS PERCENT AUTO 58 % (41-73); Platelet Count 260 K/mm3 (150-400); RDW Coefficient Variation 12.8 % (11.7-14.2); RDW Standard Deviation 38.8 fL (35.1-46.3); Red Blood Cell Count 4.56 M/mm3 (4.30-5.90); White Blood Cell Count 10.57 K/mm3 (4.00-11.30)
[2021-03-08 01:07] LABS: Vancomycin, Trough 14.1 ug/mL (5.0-10.0)
[2021-03-08 01:11] LABS: Magnesium, Blood 1.4 mg/dL (1.6-2.4)
[2021-03-08 01:14] LABS: Anion Gap 6 mmol/L (6-16); Blood Urea Nitrogen <1 mg/dL (8-24); Bun/Creatinine Ratio Unable to Calculate (12.0-20.0); CO2, Blood 27 mmol/L (21-32); Calcium, Blood 8.8 mg/dL (8.5-10.1); Chloride, Blood 113 mmol/L (98-108); Creatinine, Blood 0.62 mg/dL (0.60-1.20); Glomerular Filtration Rate >60 (60-); Glucose, Blood 125 mg/dL (70-99); Phosphorus, Blood 3.9 mg/dL (2.5-4.9); Sodium, Blood 146 mmol/L (136-145)
--- NOTE | 2021-03-08 06:13 | NUR ---
END OF SHIFT SUMMARY: Neuro: no major significant in pt.'s neuro status. pt is extremely labile. unable to follow commands and unable to hold sensible conversation. pt continously screamed, moaned and cried when he was reassured that he was safe at the hospital and restraints are needed for pt and staff safety. despite multiple attempts for pt education and multiple doses of PRN medications to help with pt agitation and violent behavior, pt continually screamed, pulling on restraints and resistive to care. precedex was restarted which seemed to help pt.'s labile behavior. still currently on 4x bilateral lower and upper ext restraints to protect pt and staff and maintain safe environment for everyone. Resp: lung sounds are clear bilaterally, no cough and on room air with saturations ranging from 98% to 100% Cardiac: pt hypertensive during episodes of agitation, MD aware and wanted to monitor pt instead of give hypertensive medication. pt HR is in the 40 - 50 due to precedex - titrating safely down. pulses are palpable. afebrile. GI/: swan catheter remains in place, patent and draining to gravity. no bm overnight. pt still NPO due to agitation and unable to follow commands. Access: Right IJ CVC remains in place, dressing clean dry and intact, all lumens were flushed and blood returned checked and noted on all lumens. Plan: continue to titrate sedatives down to maintain pt safety.
[2021-03-08 11:18] LABS: Magnesium, Blood 1.9 mg/dL (1.6-2.4); Potassium, Blood 3.3 mmol/L (3.5-5.5)
--- NOTE | 2021-03-08 15:06 | NUR ---
PT MUCH MORE ALERT TODAY. HE IS CALM AND APPROPRIATE, ABLE TO MAKE HIS NEEDS KNOWN, FOLLOWING DIRECTIONS. HE IS STILL SOMEWHAT IRRITABLE, BUT IS NOT LASHING OUT. DISCHARGE ORDERS PLACED BY DR. HUANG. RESTRAINTS D/C'D THIS MORNING, MCKEON, CENTRAL LINE AND PIV REMOVED. HIS MOTHER WILL PICK HIM UP THIS AFTERNOON.
--- NOTE | 2021-03-08 17:45 | NUR ---
PT DISCHARGED HOME WITH SUAD PERES AT 1639
== END 2021-03-08 16:50 | disposition home or self-care (01) | DRG 917 ==
LOC: ER 22:47 → ICUW 03-05 01:43 → ICUE 03-05 01:43
PROVIDERS: Emergency Medicine; Internal Medicine; Internal Medicine Critical Care Medicine; Student in an Organized Health Care Education/Training Program; ADMIT Family Medicine
PROC: 0BH18EZ Insertion of Endotracheal Airway into Trachea, Via Natural or Artificial Opening Endoscopic (ICD-10-PCS; principal; 2021-03-05)
PROC: 5A1935Z Respiratory Ventilation, Less than 24 Consecutive Hours (ICD-10-PCS; 2021-03-05)
PROC: 009U3ZX Drainage of Spinal Canal, Percutaneous Approach, Diagnostic (ICD-10-PCS; 2021-03-05)
PROC: 02HV33Z Insertion of Infusion Device into Superior Vena Cava, Percutaneous Approach (ICD-10-PCS; 2021-03-05)
DX: T43.621A Poisoning by amphetamines, accidental (unintentional), initial encounter (principal); G92.8 Other toxic encephalopathy; A41.9 Sepsis, unspecified organism; J96.01 Acute respiratory failure with hypoxia; R65.21 Severe sepsis with septic shock; N17.9 Acute kidney failure, unspecified; E87.2 Acidosis; Z20.822 Contact with and (suspected) exposure to COVID-19; E87.6 Hypokalemia; G40.909 Epilepsy, unspecified, not intractable, without status epilepticus; I16.0 Hypertensive urgency; F41.9 Anxiety disorder, unspecified; Z78.1 Physical restraint status; F32.9 Major depressive disorder, single episode, unspecified; F90.9 Attention-deficit hyperactivity disorder, unspecified type; K21.9 Gastro-esophageal reflux disease without esophagitis; G43.909 Migraine, unspecified, not intractable, without status migrainosus; F11.10 Opioid abuse, uncomplicated; Z98.890 Other specified postprocedural states; Z79.899 Other long term (current) drug therapy; E83.42 Hypomagnesemia; Z87.11 Personal history of peptic ulcer disease
CPT/HCPCS: 0241U; 31500; 36415; 36556; 36600; 51701; 51702; 62270; 70450; 71045; 72125; 80048; 80053; 80202; 81001; 82330; 82803; 82945; 83605; 83735; 84100; 84132; 84157; 84484; 85025; 87040; 87070; 87205; 87483; 89051; 93005; 93010; 94002; 94003; 95819; 96365; 96367; 96368; 96375; 99291-25; 99292; A9270; C1751; C9113; G0480; J0133; J0290; J0696; J1630; J1650; J1953; J2060; J2250; J2270; J2704; J3010; J3370; J3475; J3480; J7030; J7040; J7042; J7050; J7120

== ENCOUNTER 2021-12-04 18:03 | Emergency (ER) | payer OTHER ==
[~2021-12-04] VITALS: Ht 177.8 cm; Wt 68.0 kg
[2021-12-04 19:20] LABS: Albumin, Blood 3.7 g/dL (3.4-5.0); Albumin/Globulin Ratio 0.8 (0.8-1.8); Bilirubin, Total 0.7 mg/dL (0.1-1.0); Bun/Creatinine Ratio 18.8 (12.0-20.0); Calcium, Blood 9.4 mg/dL (8.5-10.1); Creatinine, Blood 1.01 mg/dL (0.60-1.20); Globulin, Blood 4.5 g/dL (2.2-4.0); Total Protein, Blood 8.2 g/dL (6.4-8.2)
[2021-12-04] MEDS ORDERED: NARCAN4 M1 INH (19:32)
[2021-12-04 19:38] LABS: BASOPHILS ABSOLUTE AUTO 0.09 K/mm3 (0.00-0.23); BASOPHILS PERCENT AUTO 1 % (0-2); EOSINOPHILS ABSOLUTE AUTO 0.97 K/mm3 (0.00-0.68); EOSINOPHILS PERCENT AUTO 10 % (0-6); Hematocrit 43.2 % (37.0-53.0); Hemoglobin 14.6 g/dL (13.5-17.5); IMMATURE GRAN ABSOLUTE AUTO 0.04 K/mm3 (0.00-0.10); IMMATURE GRAN PERCENT AUTO 0 % (0-1); LYMPHOCYTES ABSOLUTE AUTO 2.99 K/mm3 (0.84-5.20); LYMPHOCYTES PERCENT AUTO 30 % (21-46); MONOCYTES ABSOLUTE AUTO 0.94 K/mm3 (0.16-1.47); MONOCYTES PERCENT AUTO 9 % (4-13); Mean Corpuscular HGB 30.5 pg (26.0-34.0); Mean Corpuscular HGB Conc 33.8 g/dL (31.5-36.5); Mean Corpuscular Volume 90 fL (80-100); Mean Platelet Volume 11.3 fL (9.1-12.4); NEUTROPHILS ABSOLUTE AUTO 5.04 K/mm3 (1.96-9.15); NEUTROPHILS PERCENT AUTO 50 % (41-73); Platelet Count 262 K/mm3 (150-400); RDW Coefficient Variation 11.9 % (11.7-14.2); RDW Standard Deviation 39.6 fL (35.1-46.3); Red Blood Cell Count 4.79 M/mm3 (4.30-5.90); White Blood Cell Count 10.07 K/mm3 (4.00-11.30)
== END 2021-12-04 19:46 | disposition home or self-care (01) ==
LOC: ER 18:03
PROVIDERS: Student in an Organized Health Care Education/Training Program
DX: T40.411A Poisoning by fentanyl or fentanyl analogs, accidental (unintentional), initial encounter (principal); R40.4 Transient alteration of awareness; R51.9 Headache, unspecified; F11.90 Opioid use, unspecified, uncomplicated; F17.210 Nicotine dependence, cigarettes, uncomplicated; Z79.899 Other long term (current) drug therapy; Y92.9 Unspecified place or not applicable
CPT/HCPCS: 71045; 80053; 85025; 93005; 93010

== ENCOUNTER 2021-12-30 01:19 | Emergency (ER) | payer OTHER ==
[~2021-12-30] VITALS: Ht 177.8 cm; Wt 70.3 kg
[~2021-12-30 01:19] MED LIST changes: +LIDO700A20 TOP; +NARCAN4 M1 INH
[2021-12-30] MEDS ORDERED: IMITREX100 MG PO (01:36)
[2021-12-30] MEDS ORDERED: Hydroxyzine HCl50 MG (01:37)
[2021-12-30] MEDS ORDERED: DEPAKOTE ER500 M2 PO (01:37)
[2021-12-30 02:17] LABS: Influenza A, PCR NEGATIVE (NEGATIVE); Influenza B, PCR NEGATIVE (NEGATIVE); Resp Syncytial Virus, PCR NEGATIVE (NEGATIVE); SARS-Cov-2 (COVID-19) PCR, MMC NEGATIVE (NEGATIVE)
[2021-12-30] MEDS ORDERED: AMOCLA875 PO (02:50)
[2021-12-30] MEDS ORDERED: LIDO700A20 TOP (02:50)
== END 2021-12-30 03:05 | disposition home or self-care (01) ==
LOC: ER 01:19
PROVIDERS: Emergency Medicine
DX: J18.9 Pneumonia, unspecified organism (principal); F17.200 Nicotine dependence, unspecified, uncomplicated; Z20.822 Contact with and (suspected) exposure to COVID-19
CPT/HCPCS: 0241U; 71045; 99283-25; A9270

== ENCOUNTER 2023-01-02 15:35 | Emergency (ER) | payer OTHER ==
[~2023-01-02] VITALS: Ht 177.8 cm; Wt 68.0 kg
[~2023-01-02 15:35] MED LIST changes: +AMOCLA875 PO; +DEPAKOTE ER500 M2 PO; +Hydroxyzine HCl50 MG; +IMITREX100 MG PO
[2023-01-02 16:01] LABS: BASOPHILS ABSOLUTE AUTO 0.04 K/mm3 (0.00-0.23); BASOPHILS PERCENT AUTO 0 % (0-2); EOSINOPHILS ABSOLUTE AUTO 0.19 K/mm3 (0.00-0.68); EOSINOPHILS PERCENT AUTO 2 % (0-6); Hematocrit 35.2 % (37.0-53.0); Hemoglobin 11.8 g/dL (13.5-17.5); IMMATURE GRAN ABSOLUTE AUTO 0.05 K/mm3 (0.00-0.10); IMMATURE GRAN PERCENT AUTO 1 % (0-1); LYMPHOCYTES ABSOLUTE AUTO 1.57 K/mm3 (0.84-5.20); LYMPHOCYTES PERCENT AUTO 16 % (21-46); MONOCYTES ABSOLUTE AUTO 1.35 K/mm3 (0.16-1.47); MONOCYTES PERCENT AUTO 14 % (4-13); Mean Corpuscular HGB 29.9 pg (26.0-34.0); Mean Corpuscular HGB Conc 33.5 g/dL (31.5-36.5); Mean Corpuscular Volume 89 fL (80-100); Mean Platelet Volume 10.3 fL (9.1-12.4); NEUTROPHILS ABSOLUTE AUTO 6.71 K/mm3 (1.96-9.15); NEUTROPHILS PERCENT AUTO 68 % (41-73); Platelet Count 219 K/mm3 (150-400); RDW Coefficient Variation 11.4 % (11.7-14.2); RDW Standard Deviation 37.2 fL (35.1-46.3); Red Blood Cell Count 3.94 M/mm3 (4.30-5.90); White Blood Cell Count 9.91 K/mm3 (4.00-11.30)
[2023-01-02 16:24] LABS: Albumin, Blood 3.1 g/dL (3.4-5.0); Albumin/Globulin Ratio 0.7 (0.8-1.8); Bilirubin, Total 0.4 mg/dL (0.1-1.0); Bun/Creatinine Ratio 10.3 (12.0-20.0); Calcium, Blood 8.8 mg/dL (8.5-10.1); Creatinine, Blood 0.87 mg/dL (0.60-1.20); Globulin, Blood 4.6 g/dL (2.2-4.0); Potassium, Blood 3.7 mmol/L (3.5-5.5); Total Protein, Blood 7.7 g/dL (6.4-8.2)
[2023-01-02] MEDS ORDERED: METH40 PO (16:47)
[2023-01-02 18:15] VITALS: BP 105/65
== END 2023-01-02 19:27 | disposition home or self-care (01) ==
LOC: ER 15:35
PROVIDERS: Physician Assistant
DX: M79.89 Other specified soft tissue disorders (principal); F17.290 Nicotine dependence, other tobacco product, uncomplicated; Z79.899 Other long term (current) drug therapy
CPT/HCPCS: 36415; 71046; 80053; 83880; 85025; 93005; 93010; 93970; 99284-25; A9270

== ENCOUNTER 2023-01-18 00:14 | Inpatient (IN) | payer OTHER ==
[2023-01-18] VITALS (7 sets, daily range): BP systolic 98–119; BP diastolic 65–71
[~2023-01-18] VITALS: Ht 175.3 cm; Wt 61.8 kg
[~2023-01-18 00:14] MED LIST changes: +METH40 PO
[2023-01-18 02:15] LABS: Albumin, Blood 2.2 g/dL (3.4-5.0); Albumin/Globulin Ratio 0.4 (0.8-1.8); Bilirubin, Total 0.5 mg/dL (0.1-1.0); Bun/Creatinine Ratio 15.2 (12.0-20.0); Calcium, Blood 8.2 mg/dL (8.5-10.1); Creatinine, Blood 1.12 mg/dL (0.60-1.20); Globulin, Blood 5.9 g/dL (2.2-4.0); Potassium, Blood 3.5 mmol/L (3.5-5.5); Total Protein, Blood 8.1 g/dL (6.4-8.2)
[2023-01-18 02:26] LABS: BASOPHILS ABSOLUTE AUTO 0.07 K/mm3 (0.00-0.23); BASOPHILS PERCENT AUTO 0 % (0-2); EOSINOPHILS PERCENT AUTO 1 % (0-6); Hematocrit 33.7 % (37.0-53.0); Hemoglobin 10.9 g/dL (13.5-17.5); IMMATURE GRAN ABSOLUTE AUTO 0.29 K/mm3 (0.00-0.10); IMMATURE GRAN PERCENT AUTO 2 % (0-1); LYMPHOCYTES ABSOLUTE AUTO 2.03 K/mm3 (0.84-5.20); LYMPHOCYTES PERCENT AUTO 11 % (21-46); MONOCYTES ABSOLUTE AUTO 1.22 K/mm3 (0.16-1.47); MONOCYTES PERCENT AUTO 7 % (4-13); Mean Corpuscular HGB 30.1 pg (26.0-34.0); Mean Corpuscular HGB Conc 32.3 g/dL (31.5-36.5); Mean Corpuscular Volume 93 fL (80-100); Mean Platelet Volume 10.4 fL (9.1-12.4); NEUTROPHILS ABSOLUTE AUTO 14.73 K/mm3 (1.96-9.15); NEUTROPHILS PERCENT AUTO 80 % (41-73); Platelet Count 197 K/mm3 (150-400); RDW Coefficient Variation 12.8 % (11.7-14.2); Red Blood Cell Count 3.62 M/mm3 (4.30-5.90); White Blood Cell Count 18.44 K/mm3 (4.00-11.30)
[2023-01-18 05:14] LABS: Source, Urine Clean Catch
[2023-01-18 05:30] LABS: Bilirubin, Urine Neg (Neg); Blood, Urine 1+ (Neg); Glucose Qualitative, Urine Neg (Neg); Ketones, Urine Neg (Neg); Leukocyte Esterase, Urine Neg (Neg); Nitrite, Urine Neg (Neg); Protein, Urine 1+ (Neg); Specific Gravity, Urine 1.005 (1.003-1.022); Urobilinogen, Urine 3+ (Normal)
[2023-01-18 05:45] LABS: Appearance, Urine Clear (Clear); Color, Urine Pale Yellow (P-Yellow)
[2023-01-18 05:46] LABS: Bacteria Few /hpf; Red Blood Cells, Urine 0-2 /hpf (0-2); Squamous Epithelial Cells Few /hpf (Few); White Blood Cells, Urine 0-2 /hpf (0-5)
[2023-01-18 06:06] LABS: BASOPHILS ABSOLUTE AUTO 0.05 K/mm3 (0.00-0.23); BASOPHILS PERCENT AUTO 0 % (0-2); EOSINOPHILS ABSOLUTE AUTO 0.06 K/mm3 (0.00-0.68); EOSINOPHILS PERCENT AUTO 0 % (0-6); Hemoglobin 10.1 g/dL (13.5-17.5); IMMATURE GRAN ABSOLUTE AUTO 0.33 K/mm3 (0.00-0.10); IMMATURE GRAN PERCENT AUTO 2 % (0-1); LYMPHOCYTES ABSOLUTE AUTO 1.41 K/mm3 (0.84-5.20); LYMPHOCYTES PERCENT AUTO 7 % (21-46); MONOCYTES ABSOLUTE AUTO 1.07 K/mm3 (0.16-1.47); MONOCYTES PERCENT AUTO 6 % (4-13); Mean Corpuscular HGB 29.6 pg (26.0-34.0); Mean Corpuscular HGB Conc 31.6 g/dL (31.5-36.5); Mean Corpuscular Volume 94 fL (80-100); Mean Platelet Volume 10.1 fL (9.1-12.4); NEUTROPHILS ABSOLUTE AUTO 16.23 K/mm3 (1.96-9.15); NEUTROPHILS PERCENT AUTO 85 % (41-73); Platelet Count 189 K/mm3 (150-400); RDW Coefficient Variation 12.9 % (11.7-14.2); RDW Standard Deviation 44.7 fL (35.1-46.3); Red Blood Cell Count 3.41 M/mm3 (4.30-5.90); White Blood Cell Count 19.15 K/mm3 (4.00-11.30)
[2023-01-18 06:19] LABS: Albumin, Blood 1.9 g/dL (3.4-5.0); Albumin/Globulin Ratio 0.3 (0.8-1.8); Bilirubin, Total 0.4 mg/dL (0.1-1.0); Bun/Creatinine Ratio 14.2 (12.0-20.0); C-REACTIVE PROTEIN, EXT RANGE 17.2 mg/dL (0.000-0.300); Calcium, Blood 7.9 mg/dL (8.5-10.1); Creatinine, Blood 0.99 mg/dL (0.60-1.20); Globulin, Blood 5.7 g/dL (2.2-4.0); Potassium, Blood 3.6 mmol/L (3.5-5.5); Total Protein, Blood 7.6 g/dL (6.4-8.2)
[2023-01-18 06:37] LABS: Influenza A, PCR NEGATIVE (NEGATIVE); Influenza B, PCR NEGATIVE (NEGATIVE); Resp Syncytial Virus, PCR NEGATIVE (NEGATIVE); SARS-Cov-2 (COVID-19) PCR, MMC NEGATIVE (NEGATIVE)
--- NOTE | 2023-01-18 10:25 | NUR ---
Dr. Campbell was here to see the patient. Zacarias is lethargic, wakes to verbal stimuli and follows directions, but falls asleep mid-activity. Blood pressure and heart rate are stable. Pt status was changed to medical without telemetry. Spo2 is 96%.
--- NOTE | 2023-01-18 11:17 | NUR ---
Reported to Dr. Mayorga that the pt is refusing his lovenox injection. New order for SCDs.
--- NOTE | 2023-01-18 12:06 | NUR ---
Pt is too sleepy to eat lunch. Falling asleep while attempting to open packets. bed alarm is on. SCDs placed due to pt refusing lovenox. TElemetry put back on after Echo report and new order for temperature regulator to perform FLORENCIO.
--- NOTE | 2023-01-18 14:55 | NUR ---
Dr. Campbell was here, said that he spoke with the patient about the Echocardiogram findings. Pt appears to be sleeping at this time, eyes closed. His respirations are even, unlabored. Vital signs are stable. NS infusing at 150 cc/hour.
--- NOTE | 2023-01-18 15:26 | NUR ---
FLORENCIO will not be done, per Dr. Sarmiento. States also that the red patches on the skin of the BLE is superficial vasculitis from the infection.
--- NOTE | 2023-01-18 15:56 | NUR ---
Phone call from pt's mother, Guillermina. Updated her on the current plan: no FLORENCIO, waiting for final blood cultures senstivity while ongoing tx with IV fluids and antibiotics. Guillermina asked if the pt has been agitated or inappropriate; she said that he does that sometimes because he has a low pain tolerance and is on a lot of medications for mental problems. I informed her that Zacarias has been sleeping most of the time since he was admitted, and that his vital signs are looking better. She said that she would be in to visit this evening. She also said that the pt had been living on the [address], then in the center, and was working on getting his own apartment, but does not have his own place yet. At discharge she said that he could come to her home.
--- NOTE | 2023-01-18 17:35 | NUR ---
Spoke with pt and his sister Lindy at the bedside. Pt is much more alert, oriented and conversant. He states that he remembers conversation with the doctor and understands that he will not have a FLORENCIO but will have a regular Echocardiogram in a few days. States he understands he will be here in the hospital for about a week getting antibiotics. I confirmed that the blood cultures will confirm in a few days the ongoing course of antibiotics, but for now he's continuing with IV fluids and the antibiotics that have already been started. Lindy took home the patient's vape device which he had brought in and tied in a sock to his right upper thigh, stating that "last time they wouldn't let me have it so I put it away." Pt is agreeable to her taking it home. We reviewed the hospital's no tobacco products policy, including the use of vaping materials/devices. Pt asked if he could go outside to smoke, but I explained that the entire campus is tobacco free and it is not possible. I offered to advocate for a nicotine patch for him, which he agreed to. he said that he smokes 3-7 cigarettes/day.
[2023-01-19 03:31] LABS: BASOPHILS ABSOLUTE AUTO 0.04 K/mm3 (0.00-0.23); BASOPHILS PERCENT AUTO 0 % (0-2); EOSINOPHILS ABSOLUTE AUTO 0.25 K/mm3 (0.00-0.68); EOSINOPHILS PERCENT AUTO 2 % (0-6); Hematocrit 30.3 % (37.0-53.0); Hemoglobin 9.8 g/dL (13.5-17.5); IMMATURE GRAN ABSOLUTE AUTO 0.22 K/mm3 (0.00-0.10); IMMATURE GRAN PERCENT AUTO 1 % (0-1); LYMPHOCYTES ABSOLUTE AUTO 2.52 K/mm3 (0.84-5.20); LYMPHOCYTES PERCENT AUTO 16 % (21-46); MONOCYTES PERCENT AUTO 9 % (4-13); Mean Corpuscular HGB Conc 32.3 g/dL (31.5-36.5); Mean Corpuscular Volume 93 fL (80-100); Mean Platelet Volume 9.7 fL (9.1-12.4); NEUTROPHILS ABSOLUTE AUTO 11.48 K/mm3 (1.96-9.15); NEUTROPHILS PERCENT AUTO 72 % (41-73); Platelet Count 172 K/mm3 (150-400); RDW Coefficient Variation 12.7 % (11.7-14.2); RDW Standard Deviation 43.2 fL (35.1-46.3); Red Blood Cell Count 3.27 M/mm3 (4.30-5.90); White Blood Cell Count 15.91 K/mm3 (4.00-11.30)
[2023-01-19 03:51] LABS: Vancomycin, Trough 11.2 ug/mL (5.0-10.0)
[2023-01-19 05:39] VITALS: BP 142/22
--- NOTE | 2023-01-19 05:47 | NUR ---
SHIFT SUMMARY PT APPEARS TO HAVE RESTED COMFORTABLY T/O SHIFT AFTER ADMINISTRATIN OF ONE TIME DOSE 300MG GABAPENTIN AND TYLENOL FOR PAIN IN L SHOULDER FOLLOWING EPISODE OF PT SOBBING AND REQUESTING IV NARCOTICS, MD ORDERED GABAPENTIN AT THAT TIME. C/O CP, VS WNL AT THAT TIME, PT EDUCATED AND GUIDED ON DEEP BREATHING. PT REPORTED FEELING ANXIOUS BUT CALMED EASILY. VOIDING W/O DIFFICULTY USING URINAL. IVF 150ML/HR. TAKING PO WITH NO N/V. RASH BLE W/O CHANGES. SCD'S IN PLACE. PLAN TO CONTINUE IV ABX.
[2023-01-19 07:35] VITALS: BP 123/77
--- NOTE | 2023-01-19 07:38 | NUR ---
Pt is curled up on the bed, quietly sniffling and moaning. STates pain 7/10 in his back, and kind of all over. States that his pain like this started about 2 weeks ago. BEdside report from MCKAY Hawthorne ; she said that the 300 mg of neurontin given last night gave him relief but was not oversedating. Pt states that methadone doesn't really help his pain.
--- NOTE | 2023-01-19 07:52 | NUR ---
Pt was given scheduled medications for this morning, as well as Tylenol for fever/aches.
--- NOTE | 2023-01-19 08:16 | NUR ---
Pt is agreeable to use the SCDs. They were re placed.
[2023-01-19 08:42] LABS: Albumin, Blood 1.7 g/dL (3.4-5.0); Albumin/Globulin Ratio 0.3 (0.8-1.8); Bilirubin, Total 0.3 mg/dL (0.1-1.0); Bun/Creatinine Ratio 13.4 (12.0-20.0); Calcium, Blood 7.9 mg/dL (8.5-10.1); Creatinine, Blood 0.75 mg/dL (0.60-1.20); Globulin, Blood 5.9 g/dL (2.2-4.0); Potassium, Blood 4.5 mmol/L (3.5-5.5); Total Protein, Blood 7.6 g/dL (6.4-8.2)
[2023-01-19 12:59] VITALS: BP 106/65
--- NOTE | 2023-01-19 13:45 | NUR ---
Pt is sleeping. Awakens to verbal stimuli, but did not eat his lunch.
--- NOTE | 2023-01-19 15:55 | NUR ---
Telephone report given to MCKAY Kate at this time. Anticipate transfer to room 358 shortly.
[2023-01-19 16:25] VITALS: BP 106/72
--- NOTE | 2023-01-19 17:53 | NUR ---
TRANSFER PCU 12 REPORT RECEIVED FROM GIO BASHIR. PT ARRIVED VIA W/C ACCOMPANIED BY RN. PT TRANSFERED SELF TO BED. LEFT UE POWER GLIDE DRESSING WRINKLED AND TWISTED WOULD NOT INFUSE ANTIBIOTIC. ATTEMPTED TO UNTWIST THE CATHETER WITHOUT TAKING THE DRESSING OFF. PT BECAME VERBALLY AGGRESSIVE, SWORE AT [facility] NURSE. STARTED CRYING AND KICKING HIS FEET. HIS DAD, AT BEDSIDE, TOLD HIM TO STOP. DAD THEN LEFT. OFFERED TO GIVE PT SOME TIME. HE REFUSED. STATED, " GET THIS FUCKING THING OVER WITH." REMOVED OLD DRESSING WITH ALCOHOL PADS. HE TOLERATED WELL. NO CRYING OUT. REDRESSED. CONFIRMED WITH FLUSH THAT THE NEW POSITON AND DRESSING FLOWED WELL. CONTINUE POC.
[2023-01-19 20:03] VITALS: BP 126/76
[2023-01-20 03:18] LABS: BASOPHILS ABSOLUTE AUTO 0.05 K/mm3 (0.00-0.23); BASOPHILS PERCENT AUTO 0 % (0-2); EOSINOPHILS ABSOLUTE AUTO 0.08 K/mm3 (0.00-0.68); EOSINOPHILS PERCENT AUTO 0 % (0-6); Hematocrit 29.3 % (37.0-53.0); Hemoglobin 9.6 g/dL (13.5-17.5); IMMATURE GRAN ABSOLUTE AUTO 0.26 K/mm3 (0.00-0.10); IMMATURE GRAN PERCENT AUTO 1 % (0-1); LYMPHOCYTES ABSOLUTE AUTO 1.69 K/mm3 (0.84-5.20); LYMPHOCYTES PERCENT AUTO 8 % (21-46); MONOCYTES ABSOLUTE AUTO 1.45 K/mm3 (0.16-1.47); MONOCYTES PERCENT AUTO 7 % (4-13); Mean Corpuscular HGB 29.2 pg (26.0-34.0); Mean Corpuscular HGB Conc 32.8 g/dL (31.5-36.5); Mean Corpuscular Volume 89 fL (80-100); NEUTROPHILS ABSOLUTE AUTO 17.96 K/mm3 (1.96-9.15); NEUTROPHILS PERCENT AUTO 84 % (41-73); Platelet Count 242 K/mm3 (150-400); RDW Coefficient Variation 12.4 % (11.7-14.2); RDW Standard Deviation 40.1 fL (35.1-46.3); Red Blood Cell Count 3.29 M/mm3 (4.30-5.90); White Blood Cell Count 21.49 K/mm3 (4.00-11.30)
[2023-01-20 03:48] LABS: Alanine Aminotransfer (ALT/SGP 12 U/L (12-78); Albumin, Blood 1.7 g/dL (3.4-5.0); Albumin/Globulin Ratio 0.3 (0.8-1.8); Alk Phos 95 U/L (50-136); Anion Gap 5 mmol/L (6-16); Aspartate Aminotrans (AST/SGOT 25 U/L (12-37); Bilirubin, Total 0.3 mg/dL (0.1-1.0); Blood Urea Nitrogen 10 mg/dL (8-24); Bun/Creatinine Ratio 11.8 (12.0-20.0); CO2, Blood 29 mmol/L (21-32); Chloride, Blood 100 mmol/L (98-108); Creatinine, Blood 0.85 mg/dL (0.60-1.20); Globulin, Blood 6.2 g/dL (2.2-4.0); Glomerular Filtration Rate 125 (60-); Glucose, Blood 144 mg/dL (70-99); Potassium, Blood 4.1 mmol/L (3.5-5.5); Sodium, Blood 134 mmol/L (136-145); Total Protein, Blood 7.9 g/dL (6.4-8.2); Vancomycin, Trough 22.8 ug/mL (5.0-10.0)
[2023-01-20 04:40] VITALS: BP 116/70
--- NOTE | 2023-01-20 05:35 | NUR ---
SHIFT SUMMERY, PTS IV BEEPING CONSTQANTLY DRY TO POWER GLIDE CHANGED THIS AFTERNOON AND FLUSHED, IT FLUSHES AND DRAWS. IV VERY POSITIONAL, ARM PLACED ON PILLOW, ARM BOARD PLACED ON PT ARM , IV CHECKED AND STILL FLUSED ABD KELI BLOOD. WHENPT MOVES OR CHANGED POSITION WILL STILL ALARM, TOLD PT A NEW IV COULD BE PLACED AND PT REFUSED SAYING HE COULD NOT TOLERATE IT. PT HAS SOME MEDS TAHT WERE DC GABAPENTION AND IMATREX, PT TAKES THESE DAILY AND WAS VERY ANGERY TO FIND OUT THEY WERE DC PT YELLED AND SWORE AND THEN CALLED HIS MOTHER. WHILE PT CALLING HIS MOTHER SPOKE WITH HOSPITALIST AND GOT A ONE TIME DOSE TILL THE REASON MEDS DC COULD BE DISCUSED WITH PTS SPOKE WITH MOTHER AND SHE UNDERSTOOD AND WANTING TO TALK WITH DR FULOTN. CALL LIGHT IN REACH. PT UP AT PEEWEE OR USING URINAL TO VOID.
[2023-01-20 07:39] VITALS: BP 106/64
[2023-01-20 15:15] VITALS: BP 95/47
--- NOTE | 2023-01-20 20:11 | NUR ---
SHIFT SUMMARY PT AGITATED AT START OF SHIFT D/T BED FUNCTIONS NOT WORKING. AIDEN CALLED AND CAME TO . PT'S MOM IN TO VISIT IN AM AND AGAIN THIS EVENING. DR PRABHAKAR IN TO SEE PT SEVERAL TIMES TODAY, DISCUSSING PLAN OF CARE AND MEDICATIONS. EKG DONE AND PLACED ON CHART. VISITOR TO TODAY, BRINGING BACK PACK. PT THEN LOCKED HIMSELF IN BTHRM FOR OVER 1HR. SECURITY NOTIFIED AND ASSISTED IN LOCKING UP BACK PACK UNTIL PT TX'D. PT DECLINED OPTION TO HAVE SECURITY GO THRU IT WITH HIM FOR SAFETY. PT HAS BEEN VERY DROWSY THIS AFTERNOON. WAKES UP TO EAT A FEW BITES OFF AND ON. RED BLOTCHES TO BLE'S. WHITE BLOTCHES TO UPPER BODY AREA. DENIED FURTHER NEEDS AT THIS TIME. REPORT GIVEN TO ONCOMING RN.
[2023-01-20 20:18] VITALS: BP 100/66
[2023-01-20 21:16] VITALS: BP 117/74
[2023-01-21 02:14] VITALS: BP 106/71
[2023-01-21 05:36] LABS: BASOPHILS ABSOLUTE AUTO 0.06 K/mm3 (0.00-0.23); BASOPHILS PERCENT AUTO 0 % (0-2); EOSINOPHILS ABSOLUTE AUTO 0.24 K/mm3 (0.00-0.68); EOSINOPHILS PERCENT AUTO 2 % (0-6); Hematocrit 27.3 % (37.0-53.0); Hemoglobin 8.7 g/dL (13.5-17.5); IMMATURE GRAN ABSOLUTE AUTO 0.33 K/mm3 (0.00-0.10); IMMATURE GRAN PERCENT AUTO 2 % (0-1); LYMPHOCYTES ABSOLUTE AUTO 3.14 K/mm3 (0.84-5.20); LYMPHOCYTES PERCENT AUTO 22 % (21-46); MONOCYTES ABSOLUTE AUTO 1.61 K/mm3 (0.16-1.47); MONOCYTES PERCENT AUTO 11 % (4-13); Mean Corpuscular HGB Conc 31.9 g/dL (31.5-36.5); Mean Corpuscular Volume 91 fL (80-100); Mean Platelet Volume 9.7 fL (9.1-12.4); NEUTROPHILS ABSOLUTE AUTO 9.21 K/mm3 (1.96-9.15); NEUTROPHILS PERCENT AUTO 63 % (41-73); Platelet Count 270 K/mm3 (150-400); RDW Coefficient Variation 12.4 % (11.7-14.2); RDW Standard Deviation 41.1 fL (35.1-46.3); White Blood Cell Count 14.59 K/mm3 (4.00-11.30)
--- NOTE | 2023-01-21 06:15 | NUR ---
SHIFT SUMMARY NOC PT A/O X 4. TRANSFERRED FROM 358 TO 332 NEGATIVE PRESSURE ROOM FOR TB R/O. PT BC CAME BACK GRAM POSITIVE COCCI IN CLUSTERS, HOSPITALIST NOTIFIED AND CURRENT ABX OF VANCO WILL CONTINUE. PT HAS QUANTAFERON LABS PENDING. PT HAD EPISODE OF URINARY INCONTINENCE AND GOT QUITE EMOTIONAL ABOUT IT. PG IN FRANDY DRAWS. PT IS CURRENTLY RESTING WITH BED IN LOWEST POSITION, AND CALL LIGHT WITHIN REACH.
[2023-01-21 06:18] LABS: Alanine Aminotransfer (ALT/SGP 12 U/L (12-78); Albumin, Blood 1.7 g/dL (3.4-5.0); Albumin/Globulin Ratio 0.3 (0.8-1.8); Alk Phos 74 U/L (50-136); Anion Gap 4 mmol/L (6-16); Aspartate Aminotrans (AST/SGOT 18 U/L (12-37); Bilirubin, Total 0.3 mg/dL (0.1-1.0); Blood Urea Nitrogen 9 mg/dL (8-24); Bun/Creatinine Ratio 9.3 (12.0-20.0); CO2, Blood 32 mmol/L (21-32); Calcium, Blood 8.3 mg/dL (8.5-10.1); Chloride, Blood 99 mmol/L (98-108); Creatinine, Blood 0.97 mg/dL (0.60-1.20); Globulin, Blood 6.2 g/dL (2.2-4.0); Glomerular Filtration Rate 112 (60-); Glucose, Blood 95 mg/dL (70-99); Potassium, Blood 4.1 mmol/L (3.5-5.5); Sodium, Blood 135 mmol/L (136-145); Total Protein, Blood 7.9 g/dL (6.4-8.2); Vancomycin, Trough 21.2 ug/mL (5.0-10.0)
[2023-01-21 08:25] VITALS: BP 123/72
[2023-01-21 15:16] VITALS: BP 97/67
--- NOTE | 2023-01-21 18:26 | NUR ---
SHIFT SUMMARY: PT IS A 22 YEAR OLD MALE HERE BEING TREATED FOR INFECTIVE ENDOCARDITIS. HE HAS POSTITIVE BLOOD CULTURES AND IS AWAITING A PENDING TB TEST. HE HAS BEEN DROWSY THROUGHOUT THE DAY WITH SHORT PERIODS OF ALERTNESS INBETWEEN. WHEN ASKED ABOUT HIS TIREDNESS HE STATES THAT ITS NORMAL FOR HIM AND SINCE HE ISN'T DOING ANYTHING HE MIND WELL REST. HIS MOTHER ROMARIO CALLED TODAY AND IS SPOKE WITH HER AND GAVE HER AN UPDATE ON THE PATIENT. SHE WANTED TO LET US KNOW THAT THE PATIENT HAS HEP C AND WAS SUPPOSED TO START TREATMENT, BUT HASN'T YET. SHE SAID THAT SHE WOULD LIKE TO COME VISIT HER SON, I ADVISED HER THAT IF SHE DOES COME TO VISIT CHECK IN WITH STAFF FIRST DUE TO ISOLATION PROTOCOLS. SHE VOICED UNDERSTANDING. THE PATIENT IS IN BED RESTING, CALL LIGHT WITHIN REACH, NO SIGNS OR SYMPTOMS OF DISTRESS, AMBUALTORY IN THE ROOM. PLAN OF CARE ONGOING.
[2023-01-21 19:32] VITALS: BP 108/66
--- NOTE | 2023-01-21 22:44 | NUR ---
PT SISTER CAME TO HOSPITAL TO BRING PT SNACKS, THEY WERE CHECKED FOR CONTRABAND AND NONE FOUND. AFTER VISIT SISTER TOOK PT BELONGINS/BAG FROM NURSING STATION HOME.
[2023-01-21 23:33] LABS: Vancomycin, Trough 29.6 ug/mL (5.0-10.0)
[2023-01-22 03:55] VITALS: BP 106/64
--- NOTE | 2023-01-22 05:32 | NUR ---
SHIFT SUMMARY NOC PT A/O X 4. PLEASANT AND COOPERATIVE WITH CARE. SISTER CAME TO VISIT TO BRING PT SNACKS WHICH WERE CHECKED FOR CONTRABAND AND THEN GIVEN TO PT. SISTER TOOK PT BELONGINGS FROM NURSING STATION BACK HOME, HER NAME IS MENDOZA AND WANTS TO BE CONTACTED WHEN PT HAS DISCHARGE PLAN IN PLACE . PT HAD C/O OF NICOTINE PATCH NOT BEING STRONG ENOUGH SO HOSPITALIST NOTIFIED AND INCREASED DOSAGE FROM 7MG TO 14 MG Q DAY, IT IS ON L ARM. PT HAS PG IN FR[place]Y THAT DRAWS. PT VANCO TROUGH CRITICAL @ 29.6, PHARMACIST NOTIFIED AND AWAITING FURTHER INSTRUCTIONS. PT IS CURRENTLY RESTING WITH BED IN LOWEST POSITION, AND CALL LIGHT WITHIN REACH.
[2023-01-22 06:48] LABS: BASOPHILS ABSOLUTE AUTO 0.06 K/mm3 (0.00-0.23); BASOPHILS PERCENT AUTO 0 % (0-2); EOSINOPHILS ABSOLUTE AUTO 0.15 K/mm3 (0.00-0.68); EOSINOPHILS PERCENT AUTO 1 % (0-6); Hematocrit 29.3 % (37.0-53.0); Hemoglobin 9.7 g/dL (13.5-17.5); IMMATURE GRAN ABSOLUTE AUTO 0.26 K/mm3 (0.00-0.10); IMMATURE GRAN PERCENT AUTO 2 % (0-1); LYMPHOCYTES ABSOLUTE AUTO 2.72 K/mm3 (0.84-5.20); LYMPHOCYTES PERCENT AUTO 18 % (21-46); MONOCYTES ABSOLUTE AUTO 1.88 K/mm3 (0.16-1.47); MONOCYTES PERCENT AUTO 12 % (4-13); Mean Corpuscular HGB 29.8 pg (26.0-34.0); Mean Corpuscular HGB Conc 33.1 g/dL (31.5-36.5); Mean Corpuscular Volume 90 fL (80-100); Mean Platelet Volume 9.7 fL (9.1-12.4); NEUTROPHILS ABSOLUTE AUTO 10.48 K/mm3 (1.96-9.15); NEUTROPHILS PERCENT AUTO 67 % (41-73); Platelet Count 364 K/mm3 (150-400); RDW Coefficient Variation 12.2 % (11.7-14.2); RDW Standard Deviation 40.2 fL (35.1-46.3); Red Blood Cell Count 3.25 M/mm3 (4.30-5.90); White Blood Cell Count 15.55 K/mm3 (4.00-11.30)
[2023-01-22 07:17] LABS: Anion Gap 5 mmol/L (6-16); Blood Urea Nitrogen 10 mg/dL (8-24); Bun/Creatinine Ratio 10.9 (12.0-20.0); CO2, Blood 30 mmol/L (21-32); Calcium, Blood 8.4 mg/dL (8.5-10.1); Chloride, Blood 99 mmol/L (98-108); Creatinine, Blood 0.92 mg/dL (0.60-1.20); Glomerular Filtration Rate 120 (60-); Glucose, Blood 111 mg/dL (70-99); Potassium, Blood 4.4 mmol/L (3.5-5.5); Sodium, Blood 134 mmol/L (136-145); Vancomycin, Random 9.8 ug/mL
[2023-01-22 08:26] VITALS: BP 98/71
--- NOTE | 2023-01-22 18:45 | NUR ---
SHIFT SUMMARY PATIENT VERY LETHARGIC AND DIFFICULT TO AROUSE FIRST PART OF SHIFT. WHEN AWAKE WOULD ANSWER QUESTIONS BUT DRIFT BACK ASLEEP. PATIENT DID NOT EAT BREAKFAST OR LUNCH BECAUSE HE SLEPT THROUGH. PATIENT STATING THAT HE WAS STARTING TO HAVE A MIGRAINE. PATIENT TAKES IMETREX FOR MIGRAINES BUT NOT ORDERED. PATIENT CONTINUES TO HAVE PAIN. BLOOD PRESSURE HIGH 90'S. MOTHER CAME TO SEE PATIENT AND DISCUSSED PATIENT'S REFUSAL TO TAKE LOVENOX SHOTS AND CONCERNS FOR RISKS OF CLOTS. DISCUSSED WITH PATIENT AND MOTHER PATIENT'S CONDITION AND CONCERNS. PALLIATIVE CARE ORDER PLACED. PATIENT NOW UNDERSTANDING SEVERITY OF SITUATION AND WILL TRY TO BE MORE COOPERATIVE WITH CARE. PATIENT TEARFUL DURING DISCUSSION. COMMUNICATION PLAN TO INVOLVE MOM OR SISTER IF PATIENT BECOMES OVERWHELMED TO HELP HIM PROCESS AND COMMUNICATE WITH STAFF.
[2023-01-22 19:21] VITALS: BP 87/49
[2023-01-22 19:27] VITALS: BP 96/53
[2023-01-23 02:40] VITALS: BP 96/57
[2023-01-23 05:49] LABS: BASOPHILS ABSOLUTE AUTO 0.05 K/mm3 (0.00-0.23); BASOPHILS PERCENT AUTO 0 % (0-2); EOSINOPHILS ABSOLUTE AUTO 0.19 K/mm3 (0.00-0.68); EOSINOPHILS PERCENT AUTO 2 % (0-6); Hemoglobin 9.5 g/dL (13.5-17.5); IMMATURE GRAN PERCENT AUTO 2 % (0-1); LYMPHOCYTES ABSOLUTE AUTO 2.75 K/mm3 (0.84-5.20); LYMPHOCYTES PERCENT AUTO 22 % (21-46); MONOCYTES ABSOLUTE AUTO 1.46 K/mm3 (0.16-1.47); MONOCYTES PERCENT AUTO 11 % (4-13); Mean Corpuscular HGB 29.9 pg (26.0-34.0); Mean Corpuscular HGB Conc 32.8 g/dL (31.5-36.5); Mean Corpuscular Volume 91 fL (80-100); NEUTROPHILS ABSOLUTE AUTO 8.16 K/mm3 (1.96-9.15); NEUTROPHILS PERCENT AUTO 64 % (41-73); Platelet Count 384 K/mm3 (150-400); RDW Coefficient Variation 12.3 % (11.7-14.2); RDW Standard Deviation 40.9 fL (35.1-46.3); Red Blood Cell Count 3.18 M/mm3 (4.30-5.90); White Blood Cell Count 12.81 K/mm3 (4.00-11.30)
[2023-01-23 06:20] LABS: Albumin, Blood 1.8 g/dL (3.4-5.0); Albumin/Globulin Ratio 0.2 (0.8-1.8); Bilirubin, Total 0.1 mg/dL (0.1-1.0); Bun/Creatinine Ratio 12.1 (12.0-20.0); Calcium, Blood 8.7 mg/dL (8.5-10.1); Creatinine, Blood 0.99 mg/dL (0.60-1.20); Globulin, Blood 7.4 g/dL (2.2-4.0); Potassium, Blood 4.6 mmol/L (3.5-5.5); Total Protein, Blood 9.2 g/dL (6.4-8.2)
--- NOTE | 2023-01-23 07:50 | NUR ---
NOC SHIFT SUMMARY PATIENT A/Ox4, PLEASANT/COOPERATIVE. SITTING UP IN BED WATCHING TV BRIEFLY, MOSTLY SLEEPING THROUGHOUT SHIFT. NO C/O PAIN NOR DISCOMFORT STATED. FAMILY AT BEDSIDE. NO ACUTE CHANGES NOTED OVERNIGHT. BED LOCKED AND IN LOWEST POSITION, CALL LIGHT WITHIN REACH.
[2023-01-23 08:16] VITALS: BP 96/56
[2023-01-23 14:39] VITALS: BP 97/63
[2023-01-23 19:46] VITALS: BP 97/61
--- NOTE | 2023-01-23 20:00 | NUR ---
SHIFT SUMMARY- PT HAS HAD NO ACUTE CHANGES T/O THE DAY. HE WAS FREQUENTLY SLEEPING WHEN STAFF WENT IN TO SEE HIM. BLOOD CULTURE CAME BACK POSITIVE TODAY, COMMUNITY HEALTH NAVIGATOR CALLED MD. PT IS INDEPENDENT IN THE ROOM. NIGHT RN MEDICATED WITH TYLENOL AGAIN AFTER SHIFT CHANGE, REPORT COMPLETED WITH NIGHT RN. PT IS AWAKE AND EATING THE FOOD HE REQUESTED HIS MOTHER BRING (Peel) NO S&S OF DISTRESS NOTED. PT IN ISO FOR MRSA AND R/O TB. MOTHER STAYS THE NIGHT WITH HIM.
[2023-01-23 22:26] LABS: Vancomycin, Trough 6.9 ug/mL (5.0-10.0)
--- NOTE | 2023-01-24 04:29 | NUR ---
SHIFT SUMMARY NO ACUTE CHANGES. PT RESTED WELL T/O NIGHT. TYLENOL PRN FOR PAIN MANAGEMENT. IV ABX PER ORDERS. INDEP IN ROOM. MOM INTERMITTENTLY AT BEDSIDE FOR SUPPORT. USES CALL LIGHT APPROPRIATELY.
[2023-01-24 05:02] LABS: BASOPHILS ABSOLUTE AUTO 0.07 K/mm3 (0.00-0.23); BASOPHILS PERCENT AUTO 1 % (0-2); EOSINOPHILS ABSOLUTE AUTO 0.21 K/mm3 (0.00-0.68); EOSINOPHILS PERCENT AUTO 2 % (0-6); Hematocrit 31.1 % (37.0-53.0); Hemoglobin 10.1 g/dL (13.5-17.5); IMMATURE GRAN ABSOLUTE AUTO 0.22 K/mm3 (0.00-0.10); IMMATURE GRAN PERCENT AUTO 2 % (0-1); LYMPHOCYTES ABSOLUTE AUTO 3.27 K/mm3 (0.84-5.20); LYMPHOCYTES PERCENT AUTO 33 % (21-46); MONOCYTES ABSOLUTE AUTO 1.11 K/mm3 (0.16-1.47); MONOCYTES PERCENT AUTO 11 % (4-13); Mean Corpuscular HGB 29.4 pg (26.0-34.0); Mean Corpuscular HGB Conc 32.5 g/dL (31.5-36.5); Mean Corpuscular Volume 90 fL (80-100); Mean Platelet Volume 9.5 fL (9.1-12.4); NEUTROPHILS ABSOLUTE AUTO 5.19 K/mm3 (1.96-9.15); NEUTROPHILS PERCENT AUTO 52 % (41-73); Platelet Count 404 K/mm3 (150-400); RDW Coefficient Variation 12.2 % (11.7-14.2); RDW Standard Deviation 40.1 fL (35.1-46.3); Red Blood Cell Count 3.44 M/mm3 (4.30-5.90); White Blood Cell Count 10.07 K/mm3 (4.00-11.30)
[2023-01-24 05:56] LABS: Albumin, Blood 1.9 g/dL (3.4-5.0); Albumin/Globulin Ratio 0.2 (0.8-1.8); Bilirubin, Total 0.2 mg/dL (0.1-1.0); Bun/Creatinine Ratio 14.5 (12.0-20.0); Calcium, Blood 8.5 mg/dL (8.5-10.1); Creatinine, Blood 0.96 mg/dL (0.60-1.20); Globulin, Blood 7.6 g/dL (2.2-4.0); Potassium, Blood 4.1 mmol/L (3.5-5.5); Total Protein, Blood 9.5 g/dL (6.4-8.2)
[2023-01-24 08:55] VITALS: BP 101/68
--- NOTE | 2023-01-24 17:00 | NUR ---
"Spiritual Care | Nurse request Pt. has been taken down for a CT scan. Pts. mother and sister are present. Both verbalize concern for the Pt. and verbalize their interest in having him seen by a senior ux designer. Pts. mother displays evidence of being engaged and aware of Pts. condition. Pts. sister is also present and verbalizes concern for her brother. Family requests I see Pt. later this evening in between tests. Pts. mother verbalizes gratitude for the spiritual care visit."
[2023-01-24 17:40] VITALS: BP 110/70
--- NOTE | 2023-01-24 18:03 | NUR ---
Spiritual Care of Pt. | Family/Nurse Request Pt. is awake in bed when I enter the room. It is this kid club attendant's objective to initally build a relationship of care and support. Pt. displays evidence of currently being at peace but through a series of guided questions verbalizes there are times he wants to stop and "go on hospice." Explored some of Pts. spiritual beliefs and offered emotional support. Seek to identify the supportive relationships in his life. Pt. is scheduled to haave an MRI in 45 minutes, so this kid club attendant asks Pt. for permission to pray for Pt. Permission is given by the Pt. and prayer is given. This kid club attendant also asked permission to return tomorrow. Pt. verbalized affirmation for a return visit tomorrow. Will continue to be available to the Pt. and family.
--- NOTE | 2023-01-24 20:04 | NUR ---
SHIFT SUMMARY PT WITH FLAT AND WITHDRAWN AFFECT UNTIL HE ESCALATES TO ANGRY AND COMMENTING ABOUT WHY ANYTHING IS BEING DONE AND HE IS TIRED OF NOT BEING ABLE TO GO OUTSID OR SMOKE OR OBTAIN ADEQUATE PAIN CONTROL SO WHAT IS THE REASON FOR EVEN TRYING. "SOMETIMES I FEELING LIKE WHY TRY AND JUST GIVE UP" MOTHER AND FATHER IN ROOM THIS MORNING. CRYING AFTER LOVENOX SHOT GIVEN WHICH MOTHER REPORTS IS THE DAILY RESPONSE FOR THE SHOT. ENCOURAGED USE OF SCD'S INSTEAD OF FUTURE SHOTS AND SPOKE WITH MD ABOUT RESPONSE. SPOKE WITH [facility] WHICH REPORTED PT HAD ETOH POSITIVE UA AT BEGINNING OF DECEMBER AND HAD ONLY HAD 1 NEGATIVE BEFORE COMING TO THE HOSPITAL-NO TOX SCREEN FOUND CURRENTLY. PT IRRITABLE WHEN WOKE UP SAYING HE CAN'T SLEEP ALL NIGHT AND WHEN HE FINALLY GOES TO SLEEP HE GETS WOKE UP FOR VITAL SIGNS. HAS SLEPT MOST OF THE DAY. OBTAINED ATIVAN FOR MRI THIS EVENING. 1ST DOSE GIVEN APPROX 15 MIN. PRIOR TO GOING AND ONCE HE ARRIVED IN MRI ROOM HE SAID HE DIDN'T REMEMBER GETTING ANYTHING AND HE WAS TOO ANXIOUS TO GET IN IT. GAVE 2ND DOSE IN ATTEMPT TO SUCCESSFULLY OBTAIN MRI BUT PT BACK WITHIN A SHORT TIME AND MRI CANCELLED DUE TO LACK OF SUCCESS. 2ND LAB DRAW OBTAINED FOR TB RULE OUT.
[2023-01-25 00:07] LABS: Vancomycin, Trough 15.5 ug/mL (5.0-10.0)
--- NOTE | 2023-01-25 05:32 | NUR ---
SHIFT SUMMARY 22 YR M ADMITTED ON 01/19/23 FOR INFECTIVE ENDOCARDITIS. FULL CODE. NO ACUTE CHANGES THIS SHIFT. PT HAS SLEPT FOR THE ENTIRETY OF THIS SHIFT. HE WAS HARD TO WAKE FOR EVENING MEDS AND WHEN HE DID FINALLY WAKE UP HE WAS IRRITATED AND CURSING AT THIS NURSE AND AT HIS MOTHER WHO HAS BEEN STAYING IN THE ROOM WITH HIM. HE IS VERY DEMANDING AND HAS NO PATIENTS. POWERGLIDE IS FLUSHING AND DRAWING WELL.
[2023-01-25 05:51] VITALS: BP 111/70
[2023-01-25 09:46] VITALS: BP 96/63
[2023-01-25 10:25] LABS: BASOPHILS ABSOLUTE AUTO 0.05 K/mm3 (0.00-0.23); BASOPHILS PERCENT AUTO 0 % (0-2); EOSINOPHILS PERCENT AUTO 2 % (0-6); Hematocrit 29.7 % (37.0-53.0); Hemoglobin 9.5 g/dL (13.5-17.5); IMMATURE GRAN ABSOLUTE AUTO 0.16 K/mm3 (0.00-0.10); IMMATURE GRAN PERCENT AUTO 1 % (0-1); LYMPHOCYTES ABSOLUTE AUTO 3.25 K/mm3 (0.84-5.20); LYMPHOCYTES PERCENT AUTO 26 % (21-46); MONOCYTES ABSOLUTE AUTO 1.26 K/mm3 (0.16-1.47); MONOCYTES PERCENT AUTO 10 % (4-13); Mean Corpuscular HGB 29.4 pg (26.0-34.0); Mean Corpuscular Volume 92 fL (80-100); Mean Platelet Volume 9.5 fL (9.1-12.4); NEUTROPHILS ABSOLUTE AUTO 7.65 K/mm3 (1.96-9.15); NEUTROPHILS PERCENT AUTO 61 % (41-73); Platelet Count 412 K/mm3 (150-400); RDW Coefficient Variation 12.5 % (11.7-14.2); RDW Standard Deviation 41.5 fL (35.1-46.3); Red Blood Cell Count 3.23 M/mm3 (4.30-5.90); White Blood Cell Count 12.57 K/mm3 (4.00-11.30)
[2023-01-25 10:49] LABS: Albumin/Globulin Ratio 0.3 (0.8-1.8); Bilirubin, Total 0.2 mg/dL (0.1-1.0); Calcium, Blood 8.9 mg/dL (8.5-10.1); Globulin, Blood 7.7 g/dL (2.2-4.0); Potassium, Blood 4.3 mmol/L (3.5-5.5); Total Protein, Blood 9.7 g/dL (6.4-8.2)
[2023-01-25 14:53] VITALS: BP 102/65
[2023-01-25 16:18] VITALS: BP 102/65
--- NOTE | 2023-01-25 18:30 | NUR ---
PT MORE AWAKE TODAY THAN YESTERDAY BUT STILL PREFERS TO SLEEP. CAN BE IRRITABLE AT TIMES. FAMILY IN AND OUT OF ROOM. CERVICAL MRI COMPLETED AFTER RECEIVING ATIVAN 2MG. COBRA TRANSFER COMPLETED THIS EVENING DUE TO ACCEPTING MD AND BED AVAILABLE. CALL MADE TO DALE AT [facility]. [facility] HERE TO PICK PT UP. FAMILY HERE TO PICK PTS BELONGINGS UP.
[2023-01-27 14:12] LABS: QUANTIFERON MITOGEN VALUE 2.79 IU/mL (.); QUANTIFERON TB1 AG VALUE 0.03 IU/mL (.); QUANTIFERON TB2 AG VALUE 0.01 IU/mL (.); QUANTIFERON-TB GOLD PLUS Negative (Negative)
== END 2023-01-25 18:06 | disposition short-term general hospital (02) | DRG 871 ==
LOC: ER 00:14 → ERHOLD 00:15 → PCU 00:15 → MEDS 01-19 09:49 → PCU 01-19 09:50 → MEDS 01-19 16:18
PROVIDERS: Emergency Medicine; Family Medicine; Hospitalist; ADMIT Internal Medicine
PROC: 3E03329 Introduction of Other Anti-infective into Peripheral Vein, Percutaneous Approach (ICD-10-PCS; principal; 2023-01-18)
PROC: B24BZZZ Ultrasonography of Heart with Aorta (ICD-10-PCS; 2023-01-18)
PROC: B246ZZZ Ultrasonography of Right and Left Heart (ICD-10-PCS; 2023-01-23)
DX: A41.02 Sepsis due to Methicillin resistant Staphylococcus aureus (principal); I26.90 Septic pulmonary embolism without acute cor pulmonale; I33.0 Acute and subacute infective endocarditis; F11.20 Opioid dependence, uncomplicated; Z59.00 Homelessness unspecified; M31.0 Hypersensitivity angiitis; G43.909 Migraine, unspecified, not intractable, without status migrainosus; F31.9 Bipolar disorder, unspecified; D64.9 Anemia, unspecified; M25.562 Pain in left knee; F90.9 Attention-deficit hyperactivity disorder, unspecified type; M25.561 Pain in right knee; Z87.891 Personal history of nicotine dependence; Z11.52 Encounter for screening for COVID-19
CPT/HCPCS: 0241U; 36415; 70470; 71260; 72141; 74177; 80048; 80053; 80202; 81001; 83605; 83690; 85025; 85651; 86140; 86480; 87040; 87077; 87147; 87186; 93005; 93010; 93306; 93308; 93321; 96361; 96365-59; 96366; 96367; 96375; 99285-25; A9270; C1751; G0378; J0692; J1650; J1956; J2060; J2270; J3010; J3370; J7030; J7050; Q9967

== ENCOUNTER 2023-02-03 02:24 | Day surgery (SDC) | payer OTHER ==
[2023-02-03 11:05] VITALS: BP 118/77
[2023-02-03] MEDS ORDERED: Acetaminophen650 M1 PO (11:48)
[2023-02-03] MEDS ORDERED: Acetaminophen650 M1 (11:48)
[2023-02-03] MEDS ORDERED: OMEP20ER PO (11:49)
[2023-02-03] MEDS ORDERED: LACTASE FAS9000 UNI1 PO (11:49)
[2023-02-03] MEDS ORDERED: ONDA4ODT MM (11:51)
[2023-02-03] MEDS ORDERED: DAPTOMYCIN500 M3 IV (15:28)
== END 2023-02-03 13:17 | disposition home or self-care (01) ==
LOC: ATC 02:24
DX: I33.0 Acute and subacute infective endocarditis (principal); F31.9 Bipolar disorder, unspecified; Z59.00 Homelessness unspecified; Z87.891 Personal history of nicotine dependence
CPT/HCPCS: 96365; J0878

== ENCOUNTER 2023-02-04 02:39 | Day surgery (SDC) | payer OTHER ==
[~2023-02-04 02:39] MED LIST changes: +Acetaminophen650 M1; +Acetaminophen650 M1 PO; +DAPTOMYCIN500 M3 IV; +LACTASE FAS9000 UNI1 PO
[2023-02-04 11:15] VITALS: BP 117/72
== END 2023-02-04 11:45 | disposition home or self-care (01) ==
LOC: ATC 02:39
DX: I33.0 Acute and subacute infective endocarditis (principal); F17.210 Nicotine dependence, cigarettes, uncomplicated
CPT/HCPCS: 96365; J0878

== ENCOUNTER 2023-02-05 01:23 | Day surgery (SDC) | payer OTHER ==
[2023-02-05 10:30] VITALS: BP 125/84
== END 2023-02-05 10:55 | disposition home or self-care (01) ==
LOC: ATC 01:23
DX: I33.0 Acute and subacute infective endocarditis (principal); F31.9 Bipolar disorder, unspecified; Z59.00 Homelessness unspecified
CPT/HCPCS: 96365; J0878

== ENCOUNTER 2023-02-06 01:50 | Day surgery (SDC) | payer OTHER ==
[2023-02-06 11:12] VITALS: BP 132/88
== END 2023-02-06 11:34 | disposition home or self-care (01) ==
LOC: ATC 01:50
DX: I33.0 Acute and subacute infective endocarditis (principal); F41.9 Anxiety disorder, unspecified; F32.A Depression, unspecified
CPT/HCPCS: 96365; J0878

== ENCOUNTER 2023-02-07 02:56 | Day surgery (SDC) | payer OTHER ==
[2023-02-07 10:50] VITALS: BP 118/68
== END 2023-02-07 11:17 | disposition home or self-care (01) ==
LOC: ATC 02:56
DX: I33.0 Acute and subacute infective endocarditis (principal); F41.9 Anxiety disorder, unspecified; F32.A Depression, unspecified; Z87.891 Personal history of nicotine dependence
CPT/HCPCS: 96365; J0878

== ENCOUNTER 2023-02-08 02:16 | Day surgery (SDC) | payer OTHER ==
[2023-02-08 13:44] VITALS: BP 105/71
[2023-02-08 14:13] LABS: BASOPHILS ABSOLUTE AUTO 0.06 K/mm3 (0.00-0.23); BASOPHILS PERCENT AUTO 1 % (0-2); EOSINOPHILS ABSOLUTE AUTO 0.12 K/mm3 (0.00-0.68); EOSINOPHILS PERCENT AUTO 2 % (0-6); Hematocrit 28.8 % (37.0-53.0); IMMATURE GRAN ABSOLUTE AUTO 0.02 K/mm3 (0.00-0.10); IMMATURE GRAN PERCENT AUTO 0 % (0-1); LYMPHOCYTES ABSOLUTE AUTO 3.21 K/mm3 (0.84-5.20); LYMPHOCYTES PERCENT AUTO 48 % (21-46); MONOCYTES ABSOLUTE AUTO 0.65 K/mm3 (0.16-1.47); MONOCYTES PERCENT AUTO 10 % (4-13); Mean Corpuscular HGB 29.2 pg (26.0-34.0); Mean Corpuscular HGB Conc 31.3 g/dL (31.5-36.5); Mean Corpuscular Volume 94 fL (80-100); Mean Platelet Volume 10.2 fL (9.1-12.4); NEUTROPHILS ABSOLUTE AUTO 2.69 K/mm3 (1.96-9.15); NEUTROPHILS PERCENT AUTO 40 % (41-73); Platelet Count 304 K/mm3 (150-400); Red Blood Cell Count 3.08 M/mm3 (4.30-5.90); White Blood Cell Count 6.75 K/mm3 (4.00-11.30)
[2023-02-08 14:33] LABS: Albumin, Blood 2.7 g/dL (3.4-5.0); Albumin/Globulin Ratio 0.3 (0.8-1.8); Bilirubin, Total 0.3 mg/dL (0.1-1.0); Bun/Creatinine Ratio 20.7 (12.0-20.0); C-REACTIVE PROTEIN, EXT RANGE 2.46 mg/dL (0.000-0.300); Creatinine, Blood 1.11 mg/dL (0.60-1.20); Globulin, Blood 7.9 g/dL (2.2-4.0); Potassium, Blood 3.8 mmol/L (3.5-5.5); Total Protein, Blood 10.6 g/dL (6.4-8.2)
== END 2023-02-08 13:57 | disposition home or self-care (01) ==
LOC: ATC 02:16
PROVIDERS: Internal Medicine
DX: I33.0 Acute and subacute infective endocarditis (principal)
CPT/HCPCS: 80053; 82550; 85025; 86140; 96365; J0878

== ENCOUNTER 2023-02-09 10:40 | Day surgery (SDC) | payer OTHER ==
[2023-02-09 10:50] VITALS: BP 111/71
== END 2023-02-09 11:18 | disposition home or self-care (01) ==
LOC: ATC 10:40
DX: I33.0 Acute and subacute infective endocarditis (principal)
CPT/HCPCS: 96365; J0878

== ENCOUNTER 2023-02-10 08:59 | Day surgery (SDC) | payer OTHER ==
[2023-02-10 10:42] VITALS: BP 111/74
== END 2023-02-10 11:04 | disposition home or self-care (01) ==
LOC: ATC 08:59
DX: I33.0 Acute and subacute infective endocarditis (principal); Z59.00 Homelessness unspecified; F31.9 Bipolar disorder, unspecified
CPT/HCPCS: 96365; J0878

== ENCOUNTER 2023-02-11 04:29 | Day surgery (SDC) | payer OTHER ==
[2023-02-11 14:07] VITALS: BP 114/79
--- NOTE | 2023-02-11 14:44 | NUR ---
PT'S SCHEDULED APPT WAS AT 1030 TODAY, PT ARRIVED AT 1407 STATING HE OVER SLEPT THIS MORNING. PT ADVISED THAT IF HE DID NOT MAKE HIS 1030 APPT TOMORROW THAT THERE WOULD NOT BE A NURSE AVAILABLE FOR THE INFUSION DEPT IN THE AFTERNOON. PT VERBALIZED UNDERSTANDING AND STATED HE WOULD MAKE SURE NOT TO MISS HIS MORNING APPT TOMORROW. PT STATED HE ALSO MISSED THE [facility] THIS MORNING AND ASKED IF THE HOSPITAL COULD GET HIM A DOSE TO HOLD HIM OVER UNTIL MONDAY, I DIRECTED PATIENT TO THER ER FOR THIS.
== END 2023-02-11 14:42 | disposition home or self-care (01) ==
LOC: ATC 04:29
DX: I33.0 Acute and subacute infective endocarditis (principal); Z59.00 Homelessness unspecified; F31.9 Bipolar disorder, unspecified; D64.9 Anemia, unspecified
CPT/HCPCS: 96365; J0878

== ENCOUNTER 2023-02-11 14:47 | Emergency (ER) | payer OTHER ==
[~2023-02-11] VITALS: Ht 177.8 cm; Wt 63.0 kg
[2023-02-11 14:52] VITALS: BP 125/84
== END 2023-02-11 15:04 | disposition home or self-care (01) ==
LOC: ER 14:47
DX: F11.90 Opioid use, unspecified, uncomplicated (principal); Z76.0 Encounter for issue of repeat prescription; F17.200 Nicotine dependence, unspecified, uncomplicated; Z79.899 Other long term (current) drug therapy
CPT/HCPCS: 99281; A9270

== ENCOUNTER 2023-02-12 10:37 | Day surgery (SDC) | payer OTHER ==
[~2023-02-12 10:37] MED LIST changes: +DAPTOMYCIN IV SCH; +NS IV SCH
[2023-02-12 11:03] VITALS: BP 127/95
--- NOTE | 2023-02-12 11:26 | NUR ---
HOUSEKEEPING HAD FOUND A VAPE PEN IN ROOM 207 YESTERDAY. PT STATED TODAY IT WAS HIS VAPE PEN. PT REMINDED THAT HE NEEDS TO LEAVE ALL IGNITION SOURCES (LIGHTERS, VAPE PENS, ETC) IN HIS CAR DURING HIS APPOINTMENTS. PT HAD BEEN EDUCATED ON OUR IGNITION SOURCE POLICY AND VERBALIZED UNDERSTANDING. PER PT, PT WASN'T AWARE THAT HE HAD THE VAPE PEN ON HIM WHEN HE CAME IN YESTERDAY. VAPE PEN REMAINED IN LOCKED CABINET UNTIL THE END OF THE APPT. PT TOOK VAPE PEN HOME UPON DISCHARGE.
[2023-04-09] MEDS ORDERED: SULTRIDS PO (17:18)
[2023-04-09] MEDS ORDERED: Cephalexin500 MG PO (17:18)
== END 2023-02-12 11:26 | disposition home or self-care (01) ==
LOC: ATC 10:37
DX: I33.0 Acute and subacute infective endocarditis (principal); B95.62 Methicillin resistant Staphylococcus aureus infection as the cause of diseases classified elsewhere; I26.90 Septic pulmonary embolism without acute cor pulmonale; G93.40 Encephalopathy, unspecified; D64.9 Anemia, unspecified; F19.10 Other psychoactive substance abuse, uncomplicated; F11.10 Opioid abuse, uncomplicated; F31.9 Bipolar disorder, unspecified; Z59.00 Homelessness unspecified; Z87.891 Personal history of nicotine dependence; Z88.8 Allergy status to other drugs, medicaments and biological substances; Z79.899 Other long term (current) drug therapy; Z76.0 Encounter for issue of repeat prescription; G43.909 Migraine, unspecified, not intractable, without status migrainosus; K21.9 Gastro-esophageal reflux disease without esophagitis; F90.9 Attention-deficit hyperactivity disorder, unspecified type
CPT/HCPCS: 96365; 99281; A9270; J0878

== ENCOUNTER 2023-02-12 11:28 | Emergency (ER) | payer OTHER ==
[~2023-02-12] VITALS: Ht 177.8 cm; Wt 63.5 kg
[~2023-02-12 11:28] MED LIST changes: -DAPTOMYCIN IV SCH; -NS IV SCH
[2023-02-12 11:30] VITALS: BP 121/86
== END 2023-02-12 12:51 | disposition home or self-care (01) ==
LOC: ER 11:28
DX: Z76.0 Encounter for issue of repeat prescription (principal); F11.91 Opioid use, unspecified, in remission; G43.909 Migraine, unspecified, not intractable, without status migrainosus; K21.9 Gastro-esophageal reflux disease without esophagitis; F90.9 Attention-deficit hyperactivity disorder, unspecified type; Z79.899 Other long term (current) drug therapy; Z88.8 Allergy status to other drugs, medicaments and biological substances
CPT/HCPCS: 99281; A9270

== ENCOUNTER 2023-02-13 02:57 | Day surgery (SDC) | payer OTHER ==
[2023-02-13 11:26] VITALS: BP 118/81
== END 2023-02-13 11:52 | disposition home or self-care (01) ==
LOC: ATC 02:57
DX: I33.0 Acute and subacute infective endocarditis (principal); F17.210 Nicotine dependence, cigarettes, uncomplicated
CPT/HCPCS: 96365; J0878

== ENCOUNTER 2023-02-14 01:23 | Day surgery (SDC) | payer OTHER ==
[2023-02-14 11:42] VITALS: BP 121/76
== END 2023-02-14 12:14 | disposition home or self-care (01) ==
LOC: ATC 01:23
DX: I33.0 Acute and subacute infective endocarditis (principal); Z59.00 Homelessness unspecified; F31.9 Bipolar disorder, unspecified; D64.9 Anemia, unspecified
CPT/HCPCS: 96365; J0878

== ENCOUNTER 2023-02-15 02:01 | Day surgery (SDC) | payer OTHER ==
[2023-02-15 10:46] VITALS: BP 96/57
[2023-02-15 10:58] LABS: BASOPHILS ABSOLUTE AUTO 0.04 K/mm3 (0.00-0.23); BASOPHILS PERCENT AUTO 1 % (0-2); EOSINOPHILS ABSOLUTE AUTO 0.15 K/mm3 (0.00-0.68); EOSINOPHILS PERCENT AUTO 3 % (0-6); Hematocrit 34.6 % (37.0-53.0); Hemoglobin 10.8 g/dL (13.5-17.5); IMMATURE GRAN ABSOLUTE AUTO 0.02 K/mm3 (0.00-0.10); IMMATURE GRAN PERCENT AUTO 0 % (0-1); LYMPHOCYTES ABSOLUTE AUTO 2.35 K/mm3 (0.84-5.20); LYMPHOCYTES PERCENT AUTO 43 % (21-46); MONOCYTES ABSOLUTE AUTO 0.43 K/mm3 (0.16-1.47); MONOCYTES PERCENT AUTO 8 % (4-13); Mean Corpuscular HGB 29.3 pg (26.0-34.0); Mean Corpuscular HGB Conc 31.2 g/dL (31.5-36.5); Mean Corpuscular Volume 94 fL (80-100); NEUTROPHILS ABSOLUTE AUTO 2.54 K/mm3 (1.96-9.15); NEUTROPHILS PERCENT AUTO 46 % (41-73); Platelet Count 286 K/mm3 (150-400); RDW Coefficient Variation 14.3 % (11.7-14.2); Red Blood Cell Count 3.69 M/mm3 (4.30-5.90); White Blood Cell Count 5.53 K/mm3 (4.00-11.30)
[2023-02-15 12:35] LABS: Alanine Aminotransfer (ALT/SGP 14 U/L (12-78); Albumin, Blood 2.7 g/dL (3.4-5.0); Albumin/Globulin Ratio 0.4 (0.8-1.8); Alk Phos 64 U/L (50-136); Anion Gap 2 mmol/L (6-16); Aspartate Aminotrans (AST/SGOT 19 U/L (12-37); Bilirubin, Total 0.3 mg/dL (0.1-1.0); Blood Urea Nitrogen 12 mg/dL (8-24); Bun/Creatinine Ratio 16.1 (12.0-20.0); C-REACTIVE PROTEIN, EXT RANGE <0.290 mg/dL (0.000-0.300); CO2, Blood 31 mmol/L (21-32); Chloride, Blood 105 mmol/L (98-108); Creatinine, Blood 0.74 mg/dL (0.60-1.20); Globulin, Blood 7.2 g/dL (2.2-4.0); Glomerular Filtration Rate 131 (60-); Glucose, Blood 84 mg/dL (70-99); Potassium, Blood 3.9 mmol/L (3.5-5.5); Sodium, Blood 138 mmol/L (136-145); Total Protein, Blood 9.9 g/dL (6.4-8.2)
== END 2023-02-15 11:15 | disposition home or self-care (01) ==
LOC: ATC 02:01
PROVIDERS: Internal Medicine
DX: I33.0 Acute and subacute infective endocarditis (principal); Z59.00 Homelessness unspecified; F31.9 Bipolar disorder, unspecified
CPT/HCPCS: 80053; 82550; 85025; 86140; 96365; J0878

== ENCOUNTER 2023-02-16 02:45 | Day surgery (SDC) | payer OTHER ==
[2023-02-16 11:20] VITALS: BP 105/65
== END 2023-02-16 11:50 | disposition home or self-care (01) ==
LOC: ATC 02:45
DX: I33.0 Acute and subacute infective endocarditis (principal); B95.62 Methicillin resistant Staphylococcus aureus infection as the cause of diseases classified elsewhere; Z87.891 Personal history of nicotine dependence; Z88.8 Allergy status to other drugs, medicaments and biological substances; Z79.899 Other long term (current) drug therapy
CPT/HCPCS: 96365; J0878

== ENCOUNTER 2023-02-17 03:58 | Day surgery (SDC) | payer OTHER ==
[2023-02-17 10:46] VITALS: BP 110/68
== END 2023-02-17 11:11 | disposition home or self-care (01) ==
LOC: ATC 03:58
DX: I33.0 Acute and subacute infective endocarditis (principal); Z79.899 Other long term (current) drug therapy
CPT/HCPCS: 96365; J0878

== ENCOUNTER 2023-02-18 03:18 | Day surgery (SDC) | payer OTHER ==
[2023-02-18 10:44] VITALS: BP 118/73
== END 2023-02-18 11:23 | disposition home or self-care (01) ==
LOC: ATC 03:18
DX: I33.0 Acute and subacute infective endocarditis (principal); Z59.00 Homelessness unspecified; F31.9 Bipolar disorder, unspecified; D64.9 Anemia, unspecified
CPT/HCPCS: 96365; J0878

== ENCOUNTER 2023-02-19 04:02 | Day surgery (SDC) | payer OTHER ==
[2023-02-19 10:30] VITALS: BP 110/65
== END 2023-02-19 10:57 | disposition home or self-care (01) ==
LOC: ATC 04:02
DX: I33.0 Acute and subacute infective endocarditis (principal); F31.9 Bipolar disorder, unspecified; Z59.00 Homelessness unspecified; D64.9 Anemia, unspecified
CPT/HCPCS: 96365; J0878

== ENCOUNTER 2023-02-20 04:08 | Day surgery (SDC) | payer OTHER ==
[2023-02-20 10:37] VITALS: BP 107/73
== END 2023-02-20 10:57 | disposition home or self-care (01) ==
LOC: ATC 04:08
DX: I33.0 Acute and subacute infective endocarditis (principal); F31.9 Bipolar disorder, unspecified; Z79.899 Other long term (current) drug therapy
CPT/HCPCS: 96365; J0878

== ENCOUNTER 2023-02-21 03:04 | Day surgery (SDC) | payer OTHER ==
[2023-02-21 11:13] VITALS: BP 103/70
== END 2023-02-21 11:40 | disposition home or self-care (01) ==
LOC: ATC 03:04
DX: I33.0 Acute and subacute infective endocarditis (principal); Z59.00 Homelessness unspecified; F31.9 Bipolar disorder, unspecified; D64.9 Anemia, unspecified
CPT/HCPCS: 96365; J0878

== ENCOUNTER 2023-02-22 02:02 | Day surgery (SDC) | payer OTHER ==
[2023-02-22 10:46] VITALS: BP 111/69
[2023-02-22 12:09] LABS: BASOPHILS ABSOLUTE AUTO 0.04 K/mm3 (0.00-0.23); BASOPHILS PERCENT AUTO 1 % (0-2); EOSINOPHILS ABSOLUTE AUTO 0.13 K/mm3 (0.00-0.68); EOSINOPHILS PERCENT AUTO 2 % (0-6); Hematocrit 31.9 % (37.0-53.0); Hemoglobin 10.2 g/dL (13.5-17.5); IMMATURE GRAN ABSOLUTE AUTO 0.01 K/mm3 (0.00-0.10); IMMATURE GRAN PERCENT AUTO 0 % (0-1); LYMPHOCYTES ABSOLUTE AUTO 2.71 K/mm3 (0.84-5.20); LYMPHOCYTES PERCENT AUTO 44 % (21-46); MONOCYTES ABSOLUTE AUTO 0.74 K/mm3 (0.16-1.47); MONOCYTES PERCENT AUTO 12 % (4-13); Mean Corpuscular HGB 29.4 pg (26.0-34.0); Mean Corpuscular Volume 92 fL (80-100); Mean Platelet Volume 10.8 fL (9.1-12.4); NEUTROPHILS ABSOLUTE AUTO 2.58 K/mm3 (1.96-9.15); NEUTROPHILS PERCENT AUTO 42 % (41-73); Platelet Count 234 K/mm3 (150-400); RDW Coefficient Variation 13.5 % (11.7-14.2); RDW Standard Deviation 45.3 fL (35.1-46.3); Red Blood Cell Count 3.47 M/mm3 (4.30-5.90); White Blood Cell Count 6.21 K/mm3 (4.00-11.30)
[2023-02-22 12:30] LABS: C-REACTIVE PROTEIN, EXT RANGE 0.928 mg/dL (0.000-0.300)
[2023-02-22 12:32] LABS: Albumin/Globulin Ratio 0.5 (0.8-1.8); Bilirubin, Total 0.3 mg/dL (0.1-1.0); Bun/Creatinine Ratio 23.6 (12.0-20.0); Creatinine, Blood 0.72 mg/dL (0.60-1.20); Globulin, Blood 6.5 g/dL (2.2-4.0); Total Protein, Blood 9.5 g/dL (6.4-8.2)
== END 2023-02-22 11:20 | disposition home or self-care (01) ==
LOC: ATC 02:02
PROVIDERS: Internal Medicine
DX: I33.0 Acute and subacute infective endocarditis (principal); B95.62 Methicillin resistant Staphylococcus aureus infection as the cause of diseases classified elsewhere; Z87.891 Personal history of nicotine dependence; Z88.8 Allergy status to other drugs, medicaments and biological substances; Z79.899 Other long term (current) drug therapy
CPT/HCPCS: 80053; 82550; 85025; 86140; 96365; J0878

== ENCOUNTER 2023-02-23 01:05 | Day surgery (SDC) | payer OTHER ==
[2023-02-23 11:09] VITALS: BP 109/54
== END 2023-02-23 11:36 | disposition home or self-care (01) ==
LOC: ATC 01:05
DX: I33.0 Acute and subacute infective endocarditis (principal); B95.62 Methicillin resistant Staphylococcus aureus infection as the cause of diseases classified elsewhere; R78.81 Bacteremia; F11.90 Opioid use, unspecified, uncomplicated; Z87.891 Personal history of nicotine dependence; Z88.8 Allergy status to other drugs, medicaments and biological substances; Z79.899 Other long term (current) drug therapy
CPT/HCPCS: 96365; J0878

== ENCOUNTER 2023-02-24 03:08 | Day surgery (SDC) | payer OTHER ==
[2023-02-24 11:03] VITALS: BP 112/71
== END 2023-02-24 11:30 | disposition home or self-care (01) ==
LOC: ATC 03:08
DX: I33.0 Acute and subacute infective endocarditis (principal); Z79.899 Other long term (current) drug therapy
CPT/HCPCS: 96365; J0878

== ENCOUNTER 2023-02-25 02:33 | Day surgery (SDC) | payer OTHER ==
[2023-02-25 11:09] VITALS: BP 119/78
== END 2023-02-25 11:35 | disposition home or self-care (01) ==
LOC: ATC 02:33
DX: I33.0 Acute and subacute infective endocarditis (principal); F17.210 Nicotine dependence, cigarettes, uncomplicated; Z79.899 Other long term (current) drug therapy
CPT/HCPCS: 96365; J0878

== ENCOUNTER 2023-02-26 02:10 | Day surgery (SDC) | payer OTHER ==
[2023-02-26 11:10] VITALS: BP 128/86
== END 2023-02-26 11:37 | disposition home or self-care (01) ==
LOC: ATC 02:10
DX: I33.0 Acute and subacute infective endocarditis (principal); F17.210 Nicotine dependence, cigarettes, uncomplicated; Z79.899 Other long term (current) drug therapy
CPT/HCPCS: 96365; J0878

== ENCOUNTER 2023-02-28 04:11 | Day surgery (SDC) | payer OTHER ==
[2023-02-28 11:16] VITALS: BP 102/74
== END 2023-02-28 11:43 | disposition home or self-care (01) ==
LOC: ATC 04:11
DX: I33.0 Acute and subacute infective endocarditis (principal); Z59.00 Homelessness unspecified; D64.9 Anemia, unspecified; F31.9 Bipolar disorder, unspecified
CPT/HCPCS: 96365; J0878

== ENCOUNTER 2023-03-01 03:24 | Day surgery (SDC) | payer OTHER ==
[2023-03-01 11:18] VITALS: BP 109/75
== END 2023-03-01 22:55 | disposition home or self-care (01) ==
LOC: ATC 03:24
DX: I33.0 Acute and subacute infective endocarditis (principal); Z79.899 Other long term (current) drug therapy
CPT/HCPCS: 96365; J0878

== ENCOUNTER 2023-03-02 02:33 | Day surgery (SDC) | payer OTHER ==
[2023-03-02 11:09] VITALS: BP 105/53
== END 2023-03-02 11:20 | disposition home or self-care (01) ==
LOC: ATC 02:33
DX: I33.0 Acute and subacute infective endocarditis (principal); B95.62 Methicillin resistant Staphylococcus aureus infection as the cause of diseases classified elsewhere; Z87.891 Personal history of nicotine dependence; Z88.8 Allergy status to other drugs, medicaments and biological substances; Z79.01 Long term (current) use of anticoagulants; Z79.899 Other long term (current) drug therapy
CPT/HCPCS: 96365; J0878

== ENCOUNTER 2023-03-03 04:02 | Day surgery (SDC) | payer OTHER ==
[2023-03-03 11:12] VITALS: BP 152/74
[2023-03-03 12:11] LABS: BASOPHILS ABSOLUTE AUTO 0.05 K/mm3 (0.00-0.23); BASOPHILS PERCENT AUTO 1 % (0-2); EOSINOPHILS ABSOLUTE AUTO 0.05 K/mm3 (0.00-0.68); EOSINOPHILS PERCENT AUTO 1 % (0-6); Hematocrit 34.5 % (37.0-53.0); Hemoglobin 11.1 g/dL (13.5-17.5); IMMATURE GRAN ABSOLUTE AUTO 0.01 K/mm3 (0.00-0.10); IMMATURE GRAN PERCENT AUTO 0 % (0-1); LYMPHOCYTES PERCENT AUTO 45 % (21-46); MONOCYTES ABSOLUTE AUTO 0.46 K/mm3 (0.16-1.47); MONOCYTES PERCENT AUTO 8 % (4-13); Mean Corpuscular HGB 29.4 pg (26.0-34.0); Mean Corpuscular HGB Conc 32.2 g/dL (31.5-36.5); Mean Corpuscular Volume 92 fL (80-100); Mean Platelet Volume 10.3 fL (9.1-12.4); NEUTROPHILS ABSOLUTE AUTO 2.54 K/mm3 (1.96-9.15); NEUTROPHILS PERCENT AUTO 45 % (41-73); Platelet Count 247 K/mm3 (150-400); RDW Coefficient Variation 13.1 % (11.7-14.2); RDW Standard Deviation 43.9 fL (35.1-46.3); Red Blood Cell Count 3.77 M/mm3 (4.30-5.90); White Blood Cell Count 5.61 K/mm3 (4.00-11.30)
[2023-03-03 12:29] LABS: Albumin, Blood 3.1 g/dL (3.4-5.0); Albumin/Globulin Ratio 0.5 (0.8-1.8); Bilirubin, Total 0.3 mg/dL (0.1-1.0); Bun/Creatinine Ratio 16.8 (12.0-20.0); C-REACTIVE PROTEIN, EXT RANGE 0.48 mg/dL (0.000-0.300); Calcium, Blood 8.9 mg/dL (8.5-10.1); Creatinine, Blood 0.77 mg/dL (0.60-1.20); Globulin, Blood 6.2 g/dL (2.2-4.0); Potassium, Blood 3.6 mmol/L (3.5-5.5); Total Protein, Blood 9.3 g/dL (6.4-8.2)
--- NOTE | 2023-03-03 16:46 | NUR ---
LAB RESULTS FROM TODAY FAXED TO DR. MARTINEZ'S OFFICE.
== END 2023-03-03 11:40 | disposition home or self-care (01) ==
LOC: ATC 04:02
PROVIDERS: Internal Medicine
DX: I33.0 Acute and subacute infective endocarditis (principal)
CPT/HCPCS: 80053; 82550; 85025; 86140; 96365; J0878

== ENCOUNTER 2023-03-05 02:42 | Day surgery (SDC) | payer OTHER ==
[2023-03-05 13:59] VITALS: BP 116/77
== END 2023-03-05 14:21 | disposition home or self-care (01) ==
LOC: ATC 02:42
DX: I33.0 Acute and subacute infective endocarditis (principal); Z79.899 Other long term (current) drug therapy; Z87.891 Personal history of nicotine dependence
CPT/HCPCS: 96365; J0878

== ENCOUNTER 2023-03-27 11:24 | Emergency (ER) | payer OTHER ==
[~2023-03-27] VITALS: Ht 177.8 cm; Wt 68.0 kg
[2023-03-27 11:41] VITALS: BP 126/80
== END 2023-03-27 12:27 | disposition home or self-care (01) ==
LOC: ER 11:24
DX: Z76.0 Encounter for issue of repeat prescription (principal); F32.A Depression, unspecified; F41.9 Anxiety disorder, unspecified; Z88.8 Allergy status to other drugs, medicaments and biological substances; Z79.899 Other long term (current) drug therapy
CPT/HCPCS: 99281; A9270

== ENCOUNTER 2023-04-08 10:58 | Emergency (ER) | payer OTHER ==
[~2023-04-08] VITALS: Ht 177.8 cm; Wt 68.0 kg
[2023-04-08 11:15] VITALS: BP 120/79
[2023-04-09] MEDS ORDERED: SULTRIDS PO ×2 (17:18→17:56)
[2023-04-09] MEDS ORDERED: Cephalexin500 MG PO ×2 (17:18→17:56)
== END 2023-04-08 12:00 | disposition home or self-care (01) ==
LOC: ER 10:58
DX: F11.91 Opioid use, unspecified, in remission (principal); Z79.899 Other long term (current) drug therapy; Z88.8 Allergy status to other drugs, medicaments and biological substances
CPT/HCPCS: 99281; A9270

== ENCOUNTER 2023-04-09 16:43 | Emergency (ER) | payer OTHER ==
[~2023-04-09] VITALS: Ht 182.9 cm; Wt 68.0 kg
[2023-04-09 17:15] VITALS: BP 119/72
[2023-04-09] MEDS ORDERED: SULTRIDS PO ×2 (17:18→17:56)
[2023-04-09] MEDS ORDERED: Cephalexin500 MG PO ×2 (17:18→17:56)
== END 2023-04-09 17:35 | disposition home or self-care (01) ==
LOC: ER 16:43
DX: Z76.0 Encounter for issue of repeat prescription (principal); L03.314 Cellulitis of groin; F11.10 Opioid abuse, uncomplicated; G43.909 Migraine, unspecified, not intractable, without status migrainosus; F90.9 Attention-deficit hyperactivity disorder, unspecified type; K21.9 Gastro-esophageal reflux disease without esophagitis; Z87.11 Personal history of peptic ulcer disease; Z79.899 Other long term (current) drug therapy; Z88.8 Allergy status to other drugs, medicaments and biological substances
CPT/HCPCS: 99281; A9270

== ENCOUNTER 2023-04-15 12:31 | Emergency (ER) | payer OTHER ==
[~2023-04-15] VITALS: Ht 177.8 cm; Wt 65.8 kg
[~2023-04-15 12:31] MED LIST changes: +Cephalexin500 MG PO; +SULTRIDS PO
[2023-04-15 12:35] VITALS: BP 132/76
== END 2023-04-15 12:35 | disposition home or self-care (01) ==
LOC: ER 12:31
DX: F11.90 Opioid use, unspecified, uncomplicated (principal); Z76.0 Encounter for issue of repeat prescription; Z88.8 Allergy status to other drugs, medicaments and biological substances; Z79.899 Other long term (current) drug therapy; G43.909 Migraine, unspecified, not intractable, without status migrainosus; K21.9 Gastro-esophageal reflux disease without esophagitis
CPT/HCPCS: 99281; A9270

== ENCOUNTER 2023-04-16 16:56 | Emergency (ER) | payer OTHER ==
[~2023-04-16] VITALS: Ht 177.8 cm; Wt 68.0 kg
[2023-04-16 17:27] VITALS: BP 118/62
== END 2023-04-16 17:35 | disposition home or self-care (01) ==
LOC: ER 16:56
DX: F11.90 Opioid use, unspecified, uncomplicated (principal); Z79.899 Other long term (current) drug therapy; F32.A Depression, unspecified; F90.9 Attention-deficit hyperactivity disorder, unspecified type; F41.9 Anxiety disorder, unspecified; G43.909 Migraine, unspecified, not intractable, without status migrainosus; K21.9 Gastro-esophageal reflux disease without esophagitis; F17.200 Nicotine dependence, unspecified, uncomplicated; Z87.11 Personal history of peptic ulcer disease
CPT/HCPCS: 99281; A9270

== ENCOUNTER 2023-06-29 13:36 | Emergency (ER) | payer OTHER ==
[~2023-06-29] VITALS: Ht 177.8 cm; Wt 72.6 kg
[2023-06-29 14:12] VITALS: BP 126/89
[2023-06-29] MEDS ORDERED: Methadone HCL 10 MG TAB PO ONE (14:40)
== END 2023-06-29 15:08 | disposition home or self-care (01) ==
LOC: ER 13:36
DX: Z76.0 Encounter for issue of repeat prescription (principal); F11.99 Opioid use, unspecified with unspecified opioid-induced disorder; Z72.0 Tobacco use; G43.909 Migraine, unspecified, not intractable, without status migrainosus; F90.9 Attention-deficit hyperactivity disorder, unspecified type; K21.9 Gastro-esophageal reflux disease without esophagitis; Z79.899 Other long term (current) drug therapy; Z88.8 Allergy status to other drugs, medicaments and biological substances
CPT/HCPCS: 99281; A9270

== ENCOUNTER 2023-08-22 22:45 | Emergency (ER) | payer OTHER ==
[~2023-08-22] VITALS: Ht 175.3 cm; Wt 68.0 kg
[2023-08-23 01:30] VITALS: BP 136/84
== END 2023-08-23 02:15 | disposition home or self-care (01) ==
LOC: ER 22:45
DX: F11.20 Opioid dependence, uncomplicated (principal); Z76.0 Encounter for issue of repeat prescription; Z88.8 Allergy status to other drugs, medicaments and biological substances; Z79.899 Other long term (current) drug therapy; G43.909 Migraine, unspecified, not intractable, without status migrainosus; K21.9 Gastro-esophageal reflux disease without esophagitis; F17.200 Nicotine dependence, unspecified, uncomplicated
CPT/HCPCS: 99281

== ENCOUNTER 2023-09-07 16:13 | Emergency (ER) | payer OTHER ==
[~2023-09-07] VITALS: Ht 175.3 cm; Wt 68.0 kg
[2023-09-07 16:51] VITALS: BP 109/79
[2023-09-07] MEDS ORDERED: Methadone HCL 10 MG TAB PO ONE (17:15)
== END 2023-09-07 17:27 | disposition home or self-care (01) ==
LOC: ER 16:13
DX: Z76.0 Encounter for issue of repeat prescription (principal); F17.200 Nicotine dependence, unspecified, uncomplicated
CPT/HCPCS: 99281; A9270

== ENCOUNTER 2023-09-12 17:53 | Emergency (ER) | payer OTHER ==
[~2023-09-12] VITALS: Ht 177.8 cm; Wt 63.5 kg
[2023-09-12 18:11] VITALS: BP 124/88
[2023-09-12] MEDS ORDERED: Methadone HCL 10 MG TAB PO ONE (18:45)
== END 2023-09-12 19:21 | disposition home or self-care (01) ==
LOC: ER 17:53
DX: Z76.0 Encounter for issue of repeat prescription (principal); F11.21 Opioid dependence, in remission; K21.9 Gastro-esophageal reflux disease without esophagitis; F17.210 Nicotine dependence, cigarettes, uncomplicated; Z88.8 Allergy status to other drugs, medicaments and biological substances; Z79.899 Other long term (current) drug therapy
CPT/HCPCS: 99281; A9270

== ENCOUNTER 2023-09-22 15:38 | Emergency (ER) | payer OTHER ==
[~2023-09-22] VITALS: Ht 177.8 cm; Wt 68.0 kg
[2023-09-22 15:59] VITALS: BP 133/86
[2023-09-22] MEDS ORDERED: Methadone HCL 10 MG TAB PO ONE (16:00)
== END 2023-09-23 16:10 | disposition home or self-care (01) ==
LOC: ER 15:38
DX: Z76.0 Encounter for issue of repeat prescription (principal); F11.90 Opioid use, unspecified, uncomplicated; Z88.8 Allergy status to other drugs, medicaments and biological substances; Z79.899 Other long term (current) drug therapy; G43.909 Migraine, unspecified, not intractable, without status migrainosus; K21.9 Gastro-esophageal reflux disease without esophagitis; F17.200 Nicotine dependence, unspecified, uncomplicated
CPT/HCPCS: 99281; A9270

== ENCOUNTER 2023-09-25 11:23 | Emergency (ER) | payer OTHER ==
[~2023-09-25] VITALS: Ht 177.8 cm; Wt 68.0 kg
[2023-09-25 11:41] VITALS: BP 133/96
[2023-09-25] MEDS ORDERED: Methadone HCL 10 MG TAB PO ONE (11:50)
== END 2023-09-25 12:55 | disposition home or self-care (01) ==
LOC: ER 11:23
DX: Z76.0 Encounter for issue of repeat prescription (principal)
CPT/HCPCS: 99281

== ENCOUNTER 2023-09-25 13:45 | Emergency (ER) | payer OTHER ==
[~2023-09-25] VITALS: Ht 177.8 cm; Wt 68.0 kg
[2023-09-25 14:17] VITALS: BP 131/92
[2023-09-25] MEDS ORDERED: Methadone HCL 10 MG TAB PO ONE (14:20)
== END 2023-09-25 14:37 | disposition home or self-care (01) ==
LOC: ER 13:45
DX: Z76.0 Encounter for issue of repeat prescription (principal); G43.909 Migraine, unspecified, not intractable, without status migrainosus; F17.200 Nicotine dependence, unspecified, uncomplicated
CPT/HCPCS: 99281; A9270

== ENCOUNTER 2023-09-27 18:43 | Emergency (ER) | payer OTHER ==
[~2023-09-27] VITALS: Ht 177.8 cm; Wt 68.0 kg
[2023-09-27 18:58] VITALS: BP 137/92
[2023-09-27] MEDS ORDERED: Methadone HCL 10 MG TAB PO ONE (19:10)
== END 2023-09-27 19:24 | disposition home or self-care (01) ==
LOC: ER 18:43
DX: Z76.89 Persons encountering health services in other specified circumstances (principal); F17.200 Nicotine dependence, unspecified, uncomplicated
CPT/HCPCS: 99283; A9270

== ENCOUNTER 2023-10-02 19:01 | Emergency (ER) | payer OTHER ==
[~2023-10-02] VITALS: Ht 429.3 cm; Wt 68.0 kg
[2023-10-02 19:47] VITALS: BP 130/77
[2023-10-02] MEDS ORDERED: Methadone HCL 10 MG TAB PO ONE ×2 (20:05→21:05)
== END 2023-10-02 21:55 | disposition home or self-care (01) ==
LOC: ER 19:01
DX: Z76.0 Encounter for issue of repeat prescription (principal); Z88.8 Allergy status to other drugs, medicaments and biological substances; Z79.899 Other long term (current) drug therapy
CPT/HCPCS: 99281; A9270

== ENCOUNTER 2023-10-10 21:19 | Emergency (ER) | payer OTHER ==
[~2023-10-10] VITALS: Ht 177.8 cm; Wt 68.0 kg
[2023-10-10 21:34] VITALS: BP 107/59
[2023-10-10] MEDS ORDERED: Methadone HCL 10 MG TAB PO ONE (22:10)
== END 2023-10-10 22:56 | disposition home or self-care (01) ==
LOC: ER 21:19
DX: Z76.0 Encounter for issue of repeat prescription (principal); Z88.8 Allergy status to other drugs, medicaments and biological substances; Z79.899 Other long term (current) drug therapy
CPT/HCPCS: 99281; A9270

== ENCOUNTER 2023-11-09 12:42 | Emergency (ER) | payer OTHER ==
[~2023-11-09] VITALS: Ht 177.8 cm; Wt 68.0 kg
[2023-11-09 13:38] VITALS: BP 125/75
[2023-11-09] MEDS ORDERED: Methadone HCL 10 MG TAB PO ONE (13:40)
== END 2023-11-09 13:57 | disposition home or self-care (01) ==
LOC: ER 12:42
DX: F11.90 Opioid use, unspecified, uncomplicated (principal); Z76.0 Encounter for issue of repeat prescription
CPT/HCPCS: 99281; A9270

== ENCOUNTER 2023-11-21 11:36 | Emergency (ER) | payer OTHER ==
[~2023-11-21] VITALS: Ht 177.8 cm; Wt 68.0 kg
[2023-11-21 11:44] VITALS: BP 131/85
[2023-11-21] MEDS ORDERED: Methadone HCL 10 MG TAB PO ONE ×2 (12:30→12:55)
== END 2023-11-21 13:07 | disposition home or self-care (01) ==
LOC: ER 11:36
DX: Z76.0 Encounter for issue of repeat prescription (principal); G43.909 Migraine, unspecified, not intractable, without status migrainosus; K21.9 Gastro-esophageal reflux disease without esophagitis; Z79.899 Other long term (current) drug therapy; Z88.8 Allergy status to other drugs, medicaments and biological substances
CPT/HCPCS: 99281; A9270

== ENCOUNTER 2024-01-23 15:12 | Emergency (ER) | payer OTHER ==
[~2024-01-23] VITALS: Ht 177.8 cm; Wt 72.6 kg
[2024-01-23 15:20] VITALS: BP 124/76
[2024-01-23] MEDS ORDERED: Methadone HCL 10 MG TAB PO ONE (15:45)
== END 2024-01-23 16:17 | disposition home or self-care (01) ==
LOC: ER 15:12
DX: F11.90 Opioid use, unspecified, uncomplicated (principal); K21.9 Gastro-esophageal reflux disease without esophagitis; Z76.0 Encounter for issue of repeat prescription; Z79.899 Other long term (current) drug therapy; Z88.8 Allergy status to other drugs, medicaments and biological substances
CPT/HCPCS: 99281; A9270

== ENCOUNTER 2024-02-14 21:39 | Inpatient (IN) | payer OTHER ==
[~2024-02-14] VITALS: Ht 175.3 cm; Wt 75.7 kg
[2024-02-14] MEDS ORDERED: Diphth,Pertuss(Acell),Tet Vac 0.5 ML VIAL IM ONE (22:15)
[2024-02-14] MEDS ORDERED: Midazolam HCl 1MG / ML 2ML Vial IV ONE (22:15)
[2024-02-14] MEDS ORDERED: FentaNYL Citrate 50 MCG/ML 2 ML Injection IV PRN (22:15)
[2024-02-14 22:31] LABS: BASOPHILS ABSOLUTE AUTO 0.06 K/mm3 (0.00-0.23); BASOPHILS PERCENT AUTO 1 % (0-2); EOSINOPHILS ABSOLUTE AUTO 0.25 K/mm3 (0.00-0.68); EOSINOPHILS PERCENT AUTO 3 % (0-6); Hematocrit 40.4 % (37.0-53.0); Hemoglobin 13.2 g/dL (13.5-17.5); IMMATURE GRAN ABSOLUTE AUTO 0.06 K/mm3 (0.00-0.10); IMMATURE GRAN PERCENT AUTO 1 % (0-1); LYMPHOCYTES ABSOLUTE AUTO 2.83 K/mm3 (0.84-5.20); LYMPHOCYTES PERCENT AUTO 30 % (21-46); MONOCYTES ABSOLUTE AUTO 0.58 K/mm3 (0.16-1.47); MONOCYTES PERCENT AUTO 6 % (4-13); Mean Corpuscular HGB 29.6 pg (26.0-34.0); Mean Corpuscular HGB Conc 32.7 g/dL (31.5-36.5); Mean Corpuscular Volume 91 fL (80-100); Mean Platelet Volume 10.3 fL (9.1-12.4); NEUTROPHILS ABSOLUTE AUTO 5.55 K/mm3 (1.96-9.15); NEUTROPHILS PERCENT AUTO 60 % (41-73); Platelet Count 248 K/mm3 (150-400); RDW Coefficient Variation 11.9 % (11.7-14.2); RDW Standard Deviation 39.5 fL (35.1-46.3); Red Blood Cell Count 4.46 M/mm3 (4.30-5.90); White Blood Cell Count 9.33 K/mm3 (4.00-11.30)
[2024-02-14 22:49] LABS: Albumin, Blood 3.3 g/dL (3.4-5.0); Albumin/Globulin Ratio 0.8 (0.8-1.8); Bilirubin, Total 0.3 mg/dL (0.1-1.0); Calcium, Blood 8.6 mg/dL (8.5-10.1); Creatinine, Blood 0.79 mg/dL (0.60-1.20); Globulin, Blood 4.4 g/dL (2.2-4.0); Potassium, Blood 4.3 mmol/L (3.5-5.5); Total Protein, Blood 7.7 g/dL (6.4-8.2)
[2024-02-14] MEDS ORDERED: LORazepam 2 MG/ML 1ML Injection IV ONE (23:50)
[2024-02-15] VITALS (21 sets, daily range): BP systolic 114–150; BP diastolic 76–128
[2024-02-15 00:09] LABS: U Amphetamine Screen DETECTED; U Barbituate Screen Not Detected; U Benzodiazapine Screen Not Detected; U Buprenorphine Screen Not Detected; U Cannabinoids Screen DETECTED; U Cocaine Screen Not Detected; U Methadone Screen DETECTED; U Methamphetamine Screen DETECTED; U Opiates Screen DETECTED; U Oxycodone Screen Not Detected; U Phencyclidine Screen Not Detected
[2024-02-15] MEDS ORDERED: Midazolam HCl 1MG / ML 2ML Vial IV SCH (00:10)
[2024-02-15] MEDS ORDERED: MIRT15ST PO (01:43)
[2024-02-15] MEDS ORDERED: NS 1,000 ML IV ONE (01:50)
[2024-02-15] MEDS ORDERED: LORazepam 2 MG/ML 1ML Injection IV PRN ×2 (02:40→07:50)
--- NOTE | 2024-02-15 03:01 | NUR ---
ARRIVAL TO UNIT THIS RN RECEIVED REPORT FROM ED NURSE RISSA REGARDING SEDATION OF PATIENT, INCLUDING IV VERSED. THIS RN MADE QUILL CLEANER [place] AWARE; IN COMMUNICATION WITH ADMITTING PROVIDER & NURSING ADON SHANA. THIS RN ASKED ED NURSE RISSA TO HOLD TRANSFER FROM ED TO SURGICAL FLOOR TO CLARIFY ORDERS, SUCH MISSING ADMIT ORDERS. PT TRANPORTED BY REFUSE AND RECYCLING WORKER IMMEDIATELY TO SURGICAL FLOOR DESPITE REQUEST TO WAIT FOR APPROPRIATE ORDERS TO BE IN PLACE. PT ARRIVED TO SURGICAL FLOOR 0225. SCREAMING UNINTELLIGABILY. A&OX4, REFUSING TO ANSWER MOST QUESTIONS FROM NURSING STAFF. INTERMITTENTLY COOPERATIVE WITH CARES INCLUDING VITALS. PINPOINT PUPILS THAT DO NOT REACT TO LIGHT. LACERATIONS TO RIGHT SUPRAORBITAL WITH SWELLING, BRUISING, DRIED BLOOD. LARGE AMOUNTS OF DRIED BLOOD TO ENTIRE FACE. LACERATION TO LEFT UPPER LIP WITH X5 STITCHES. LARGE AMOUNTS OF DRIED BLOOD & SWELLING. BLOODY GUMS. HANDS WITH MODERATE AMOUNTS OF DRIED BLOOD, OPEN LACERATIONS TO KNUCKLES. SCAR TISSUE SCATTERED T/O TRUNK AND BUE. PT REFUSING TO ANSWER QUESTIONS REGARDING EVENTS LEADING TO HOSPITALIZATION, REFUSING TO ANSWER QUESTIONS REGARDING MEDICAL HISTORY.
--- NOTE | 2024-02-15 04:13 | NUR ---
SHIFT NOTE PT TRANSFERRED TO ICU AT 0410. SCREAMING SAYING, "EVERYTHING HURTS". IV ANALGESICS GIVEN PER EMAR IMMEDIATELY PRIOR TO TRANSFER WITHOUT IMPROVEMENT IN PAIN PER PATIENT.
[2024-02-15] MEDS ORDERED: HYDROmorphone HCl/Pf 1MG SYR IV ONE (04:15)
[2024-02-15] MEDS ORDERED: HYDROmorphone HCl/Pf 1MG SYR ONE (04:18)
--- NOTE | 2024-02-15 04:45 | NUR ---
TRANSFER/ASSUMED CARE PT ARRIVED TO ICU AT 0415. PT YELLING AND CRYING OUT. TRANSFERED TO BED BY STAFF. PT GIVEN DILAUDID 1 MG FOR PAIN. PT CALM AFTER DILAUDID. FACE COVERED IN BLOOD. LACERATION TO LEFT UPPER LIP WITH 5 SUTURES, RIGHT SUPRAORBITAL LACERATION. C-COLLAR ON. CLEANED BLOOD FROM FACE AND HANDS. APPLIED POLYSPORIN TO LACERATIONS. LUNGS CLEAR ON ROOMAIR. RESP EVEN AND NONLABORED. HEART RATE SINUS TACH IN THE 100'S. BP STABLE. NEW IV 20G PLACED TO RIGHT HAND AND LABS DRAWN. IV 20G TO LEFT AC WITH NS AT 75 ML/HR. ASSISTED PT TO STAND TO VOID. BACK TO BED AND SLEEP QUICKLY AFTER VOIDING.
[2024-02-15] MEDS ORDERED: HYDROmorphone HCl/Pf 1MG SYR IV PRN ×2 (05:25→07:55)
[2024-02-15] MEDS ORDERED: Ondansetron HCl 2 MG / ML 2ML Vial IV PRN ×2 (05:35→07:55)
[2024-02-15 05:46] LABS: BASOPHILS ABSOLUTE AUTO 0.04 K/mm3 (0.00-0.23); BASOPHILS PERCENT AUTO 0 % (0-2); EOSINOPHILS ABSOLUTE AUTO 0.16 K/mm3 (0.00-0.68); EOSINOPHILS PERCENT AUTO 1 % (0-6); Hematocrit 42.5 % (37.0-53.0); Hemoglobin 14.1 g/dL (13.5-17.5); IMMATURE GRAN ABSOLUTE AUTO 0.03 K/mm3 (0.00-0.10); IMMATURE GRAN PERCENT AUTO 0 % (0-1); LYMPHOCYTES ABSOLUTE AUTO 2.43 K/mm3 (0.84-5.20); LYMPHOCYTES PERCENT AUTO 22 % (21-46); MONOCYTES ABSOLUTE AUTO 1.22 K/mm3 (0.16-1.47); MONOCYTES PERCENT AUTO 11 % (4-13); Mean Corpuscular HGB 29.5 pg (26.0-34.0); Mean Corpuscular HGB Conc 33.2 g/dL (31.5-36.5); Mean Corpuscular Volume 89 fL (80-100); Mean Platelet Volume 11.2 fL (9.1-12.4); NEUTROPHILS ABSOLUTE AUTO 7.35 K/mm3 (1.96-9.15); NEUTROPHILS PERCENT AUTO 65 % (41-73); Platelet Count 244 K/mm3 (150-400); RDW Standard Deviation 39.1 fL (35.1-46.3); Red Blood Cell Count 4.78 M/mm3 (4.30-5.90); White Blood Cell Count 11.23 K/mm3 (4.00-11.30)
--- NOTE | 2024-02-15 06:19 | NUR ---
SHIFT SUMMARY PT RESTING QUIETLY AT THIS TIME. MED WITH DILAUDID AND ATIVAN FOR PAIN AND ANXIETY. PT WITH POOR COPING SKILLS. C-COLLAR ON. PT TURING AND MOVING SELF IN BED. RESP EVEN AND NONLABORED. REPORT TO ON COMING NURSE
[2024-02-15 06:42] LABS: Albumin, Blood 3.6 g/dL (3.4-5.0); Albumin/Globulin Ratio 0.8 (0.8-1.8); Bilirubin, Total 0.2 mg/dL (0.1-1.0); Calcium, Blood 8.9 mg/dL (8.5-10.1); Creatinine, Blood 0.72 mg/dL (0.60-1.20); Globulin, Blood 4.5 g/dL (2.2-4.0); Potassium, Blood 3.8 mmol/L (3.5-5.5); Total Protein, Blood 8.1 g/dL (6.4-8.2)
[2024-02-15] MEDS ORDERED: FentaNYL Citrate 50 MCG/ML 2 ML Injection IV PRN (07:50)
[2024-02-15] MEDS ORDERED: NS 1,000 ML IV SCH (07:55)
[2024-02-15] MEDS ORDERED: FLU VACC TS2024-25(6MOS UP)/PF 45 MCG/0.5 ML SYRINGE IM PRN (07:55)
[2024-02-15] MEDS ORDERED: Ketorolac Tromethamine 15mg Vial IV PRN (12:30)
[2024-02-15] MEDS ORDERED: Lidocaine 4% 1 Patch TOP SCH (13:00)
[2024-02-15] MEDS ORDERED: Gabapentin 300 MG Cap PO SCH (18:00)
--- NOTE | 2024-02-15 18:27 | NUR ---
Summary. Pt rested in bed this shift. Much improved compared to report of past few days. Pt alert and oriented this shift, Precedex titrated off. Pt verbalized being motivated to get stronger and get out of the hospital as soon as he can. No acute events this shift. See chart for details.
--- NOTE | 2024-02-15 20:13 | NUR ---
ASSESSMENT/ASSUMED CARE PT CRYING AND PULLING AT SOFT C COLLAR. REMOVED PER PT COMFORT. PT VERY ANXIOUS AND C/O PAIN. TRIED TO GIVE TORADOL, BUT PT STATES,"I CAN'T TAKE TORADOL. IT MAKES ME ANXIOUS". TORADOL HELD AND ATIVAN GIVEN. MOTHER AT BEDSIDE. PT C/O TO IV IN RIGHT HAND, DC'C INTACT. LUNGS CLEAR ON ROOMAIR. RESP EVEN AND NONLABORED. HEART RATE REGULAR, BP STABLE. IV 20G TO LEFT AC WITH NS AT 75 ML/HR INFUSING. LEFT UPPER LIP WITH 5 SUTURES, AND RIGHT SUPRAORBITAL LACERATION. PT WAS CHANGED TO SURGICAL FLOOR STATUS. PT SLEEPY AFTER ATIVAN GIVEN.
--- NOTE | 2024-02-15 20:36 | NUR ---
ALINA CALLED: ALINA WAS CALLED EARLIER TO GET A DOSE FOR THE PT'S METHADONE. SRAVANI FULLER CALLED BACK AND STATED THAT THE PT TAKES 70MG OF METHADONE DAILY.
[2024-02-15] MEDS ORDERED: Divalproex Sodium 500 MG TABCR PO SCH (21:00)
[2024-02-15] MEDS ORDERED: Mirtazapine 15 MG SoluTab PO SCH (21:00)
[2024-02-15] MEDS ORDERED: Petrolatum/Mineral Oil/Lanolin 1 APPLIC/50 GM Tube TOP SCH (21:00)
--- NOTE | 2024-02-15 21:39 | NUR ---
TRANSFER PT BEING TRANSFERED TO 309. REPORT CALLED PEPITO.
--- NOTE | 2024-02-15 21:41 | NUR ---
FAMILY NOTIFED REGARDING TRANSFER TO ROOM 309. MESSAGE LEFT
[2024-02-16] MEDS ORDERED: MIRTAZAPINE7.5 M1 PO (00:37)
[2024-02-16] MEDS ORDERED: ATOMOXETINE HC100 MG PO (00:37)
[2024-02-16] MEDS ORDERED: DEPAKOTE ER500 M2 PO (00:38)
[2024-02-16] MEDS ORDERED: HYDROmorphone HCl/Pf 1MG SYR IV PRN (01:15)
[2024-02-16] MEDS ORDERED: Methadone HCL 10 MG TAB PO ONE (01:20)
[2024-02-16 05:07] VITALS: BP 130/91
[2024-02-16 05:29] LABS: BASOPHILS ABSOLUTE AUTO 0.06 K/mm3 (0.00-0.23); BASOPHILS PERCENT AUTO 1 % (0-2); EOSINOPHILS ABSOLUTE AUTO 0.11 K/mm3 (0.00-0.68); EOSINOPHILS PERCENT AUTO 1 % (0-6); Hematocrit 41.3 % (37.0-53.0); IMMATURE GRAN ABSOLUTE AUTO 0.04 K/mm3 (0.00-0.10); IMMATURE GRAN PERCENT AUTO 0 % (0-1); LYMPHOCYTES ABSOLUTE AUTO 3.07 K/mm3 (0.84-5.20); LYMPHOCYTES PERCENT AUTO 25 % (21-46); MONOCYTES ABSOLUTE AUTO 1.71 K/mm3 (0.16-1.47); MONOCYTES PERCENT AUTO 14 % (4-13); Mean Corpuscular HGB 29.7 pg (26.0-34.0); Mean Corpuscular HGB Conc 33.9 g/dL (31.5-36.5); Mean Corpuscular Volume 88 fL (80-100); Mean Platelet Volume 11.6 fL (9.1-12.4); NEUTROPHILS ABSOLUTE AUTO 7.52 K/mm3 (1.96-9.15); NEUTROPHILS PERCENT AUTO 60 % (41-73); Platelet Count 217 K/mm3 (150-400); RDW Coefficient Variation 11.9 % (11.7-14.2); RDW Standard Deviation 38.5 fL (35.1-46.3); Red Blood Cell Count 4.71 M/mm3 (4.30-5.90); White Blood Cell Count 12.51 K/mm3 (4.00-11.30)
--- NOTE | 2024-02-16 05:35 | NUR ---
SHIFT SUMMARY: Pt is admitted for facial trauma and is a full code. Is alert and able to make some needs known. ADLs have been SBA - 1. Pain has been managed with PRN medication. Would wake up and start yelling that he is in pain. After a couple of minutes would sit and just rock for a few min. then lay back and calm down.
[2024-02-16 05:46] LABS: Bun/Creatinine Ratio 11.5 (12.0-20.0); Calcium, Blood 9.2 mg/dL (8.5-10.1); Creatinine, Blood 0.78 mg/dL (0.60-1.20); Potassium, Blood 3.2 mmol/L (3.5-5.5)
[2024-02-16] MEDS ORDERED: Potassium Chl 20MEQ/Water100ML 100 ML IV SCH (07:05)
[2024-02-16 07:07] VITALS: BP 132/97
[2024-02-16] MEDS ORDERED: NS 250 ML IV PRN (08:20)
[2024-02-16] MEDS ORDERED: Enoxaparin 40 MG/0.4 ML SYR SC SCH (09:00)
[2024-02-16] MEDS ORDERED: Amoxicillin/Clavulanate K 875 MG Tab PO SCH (09:00)
[2024-02-16] MEDS ORDERED: Propranolol HCL 80 MG CAPCR PO SCH (09:00)
[2024-02-16] MEDS ORDERED: Methadone HCL 10 MG TAB PO SCH (09:00)
--- NOTE | 2024-02-16 12:30 | NUR ---
PATIENT'S MOTHER ROMARIO CALLED AND REQUESTED AN UPDATE; UPDATE GIVEN TO PATIENT'S MOTHER.
[2024-02-16 15:23] VITALS: BP 122/90
--- NOTE | 2024-02-16 16:56 | NUR ---
SHIFT SUMMARY: PT AOX4, STILL VERY GROGGY, SLEEPING MOST OF THE DAY. ONLY WAKING UP A FEW TIMES TO WRITHING IN PAIN, MEDICATED PER EMR. THIS RN AND THE SHEET MANUFACTURING SUPERVISOR ATTEMPTED TO CLEAN UP HIS WOUNDS WITH SOAP AND WATER WITH SOME SUCCESS. PT TOLERATED WELL AFTER BEING MEDICATED FOR PAIN. IS MORE ALERT AND AWAKE NOW WHEN HE WAS HARD TO AROUSE BEFORE. PT PLEASANT AND USES CALL LIGHT APPROPRIATELY NOW. REFUSED LOVENOX, BUT OTHERWISE TOOK PILLS OKAY EVEN IN PRIOR STATE. EATING ICECREAM AND TOLERATING WELL. PT CURRENTLY IN BED RESTING, BED IN LOWEST POSITION, CALL LIGHT IN REACH. CONTINUING CARE.
[2024-02-16 20:22] VITALS: BP 151/116
[2024-02-17 05:21] LABS: BASOPHILS ABSOLUTE AUTO 0.07 K/mm3 (0.00-0.23); BASOPHILS PERCENT AUTO 1 % (0-2); EOSINOPHILS ABSOLUTE AUTO 0.19 K/mm3 (0.00-0.68); EOSINOPHILS PERCENT AUTO 2 % (0-6); Hematocrit 43.6 % (37.0-53.0); Hemoglobin 14.5 g/dL (13.5-17.5); IMMATURE GRAN ABSOLUTE AUTO 0.04 K/mm3 (0.00-0.10); IMMATURE GRAN PERCENT AUTO 0 % (0-1); LYMPHOCYTES ABSOLUTE AUTO 3.53 K/mm3 (0.84-5.20); LYMPHOCYTES PERCENT AUTO 28 % (21-46); MONOCYTES ABSOLUTE AUTO 1.39 K/mm3 (0.16-1.47); MONOCYTES PERCENT AUTO 11 % (4-13); Mean Corpuscular HGB 29.4 pg (26.0-34.0); Mean Corpuscular HGB Conc 33.3 g/dL (31.5-36.5); Mean Corpuscular Volume 88 fL (80-100); Mean Platelet Volume 11.5 fL (9.1-12.4); NEUTROPHILS ABSOLUTE AUTO 7.34 K/mm3 (1.96-9.15); NEUTROPHILS PERCENT AUTO 58 % (41-73); Platelet Count 234 K/mm3 (150-400); RDW Coefficient Variation 12.1 % (11.7-14.2); RDW Standard Deviation 38.6 fL (35.1-46.3); Red Blood Cell Count 4.94 M/mm3 (4.30-5.90); White Blood Cell Count 12.56 K/mm3 (4.00-11.30)
[2024-02-17 05:50] LABS: Bun/Creatinine Ratio 16.6 (12.0-20.0); Calcium, Blood 9.4 mg/dL (8.5-10.1); Creatinine, Blood 0.91 mg/dL (0.60-1.20); Potassium, Blood 4.2 mmol/L (3.5-5.5)
--- NOTE | 2024-02-17 06:13 | NUR ---
SHIFT SUMMARY: PT IS A 23 YO FULL CODE WHO WAS ADMITTED FOR FACIAL TRAUMA AND FRACTURES IN THE FACE AND SPINE. PT AWOKE AT THE BEG OF THE SHIFT FROM SLEEPING ALL DAY REPORTED BY GUILLE AND WAS CRYING IN A LOT OF PAIN AND HAD BECAME INCONTINENT IN HIS BED. MYSELF AND THE SALES DEVELOPMENT SPECIALIST GOT PT IN THE SHOWER AND CHANGED HIS LINEN. PT WAS UNCONTROLLABLY SOBBING AND ASKED FOR US TO CALL HIS MOM. HIS MOM BROUGHT HIM ICE CREAM AND STAYED FOR A LITTLE BIT. I MEDICATED THE PT (SEE EMAR) TO HELP WITH PAIN AND ANXIETY. PT REQUESTED HIS METHADONE AND I TOLD HIM HE RECEIVES IT IN THE MORNING AND HE UNDERSTOOD. PT IS ON CONT. PULSE OX AND HAS NORMAL BASELINE "TWITCHES" CAN OLD SCARRING ON CHEST. PT'S LIP WAS BLEEDING SOME AND I ASSISTED IN CLEANING HIM UP. PT IS ON A FULL LIQUID DIET AND ATE 2 CONTAINERS OF ICE CREAM. PT AWOKE A COUPLE TIMES IN PAIN. PT HAS CALL LIGHT IN REACH AND USES IT NEEDED.
[2024-02-17 06:16] VITALS: BP 153/114
[2024-02-17 07:30] VITALS: BP 155/110
[2024-02-17] MEDS ORDERED: Polyethylene Glycol 3350 17 gm PO SCH (09:00)
[2024-02-17] MEDS ORDERED: Cyclobenzaprine HCl 10 MG Tab PO PRN (12:50)
[2024-02-17] MEDS ORDERED: Atomoxetine HCL 40 MG Cap PO SCH (13:00)
[2024-02-17] MEDS ORDERED: ATOMOXETINE HCL PO SCH (13:02)
[2024-02-17 17:01] VITALS: BP 153/102
--- NOTE | 2024-02-17 17:28 | NUR ---
NURSING NOTE: PT AWOKE AND REQUESTED SOME THINGS TO EAT AND SIP ON. WHEN INFORMED ABOUT NEW PAIN REGIMENT, WAS VERY AGITATED AND UPSET. WAS A 7/10 EVEN AFTER THE TYLENOL, AND SHOWING SOME SIGNS OF ALCOHOL WITHDRAWAL. SLIGHT TREMBLING, ROCKING BACK IN FORTH, SWEATY PALMS AND AGITATED. ALCOHOL WITHDRAWL ASSESSMENT PERFORMED. DR. JASMINE INFORMED OF WITHDRAWL AND CURRENT PAIN. TOLD THAT HE WOULD SPEAK TO ATTENDING HOSPITALIST TO FIND SOLUTION. PT UPRIGHT IN BED WITH DAD AT BEDSIDE. AGITATED AND IN PAIN. CONTINUING CARE.
--- NOTE | 2024-02-17 17:50 | NUR ---
SHIFT SUMMARY: PT AOX4 WHEN AWAKE BUT VERY DROWSY THEN WAKING UP WITH BREAK THROUGH PAIN INTERMITTENTLY. RESPIRATORY RATE AND O2 SATS STABLE WHILE PT RESTS COMFORTABLE. CAN BE AROUSED AND FOLLOW COMMANDS SUCH TAKING PILLS AND APPLYING OINTMENT ETC. PROVIDER CAME BY AND DISCUSSED WITH THIS RN PLANS TO START CUTTING BACK ON PAIN MEDS AND TO DISCHARGE TOMORROW. PT STILL ASLEEP UNTIL AROUND 1700 WHERE THEY WOKE UP AGITATED ABOUT NEW PAIN MEDICINE REGIMENT. MEDICATED PER EMR AND ALCOHOL WITHDRAWL SCREENING PERFORMED. PROVIDER NOTIFIED ABOUT BREAKTHROUGH PAIN AND POSSIBILITY FOR ALCOHOL WITHDRAWL. AWAITING NEW ORDERS. PT CURRENTLY EATING DINNER WITH FAMILY AT BEDSIDE. BED IN LOWEST POSITION AND CALL LIGHT IN REACH. CONTINUING CARE.
[2024-02-17] MEDS ORDERED: LORazepam 1 MG Tab PO PRN (18:00)
[2024-02-17] MEDS ORDERED: Acetaminophen 325 MG TABLET PO SCH (18:00)
[2024-02-17 21:01] VITALS: BP 107/81
--- NOTE | 2024-02-17 22:28 | NUR ---
@ 2100 THIS GENERAL MATCHER WENT INTO THE PT'S ROOM TO ADMINSTER NIGHT TIME MEDICATIONS AND GET ROUTINE VITALS. THE PT WAS NOT HAPPY TO BE WOKEN UP AND DID NOT WANT HIS VITALS TAKEN AND DI NOT WANT HIS MEDICATION EXCEPT FOR DILAUDID OR METHADONE. I EDUCATED ON THE IMPORTANCE OF THE ANTIBIOTICS AND HE TOOK THEM BUT WAS NOT HAPPY. PT WAS ANGRY THAT THE DILAUDID WAS D/C AND QUESTIONING WHY THE DOCTOR D/C'D HIS MEDICATION. I EXPLAINED TO HIM THAT I MUST FOLLOW THE DOCTORS ORDERS AND HE THREATENED TO LEAVE AMA. I GAVE THE PT SOME SPACE AND PT IS NOW ASLEEP AND CONT BIOX IN PLACE. CALL LIGHT WITHIN REACH.
[2024-02-18] MEDS ORDERED: FentaNYL Citrate 50 MCG/ML 2 ML Injection IV PRN (03:40)
--- NOTE | 2024-02-18 04:17 | NUR ---
@ 0330 WHILE THIS NURSE WAS ON BREAK THE BREAK NURSE COVERING ME CONTACTED HOSPITALIST FOR BREAK THROUGH PAIN FOR PT WHO WAS CRYING IN PAIN. FENTANYL 25-50 MCG WAS ORDERED Q4 (SEE EMAR). PT WAS MEDICATED 25 MCG BY MYSELF AND NOW RESTING. CALL LIGHT IN REACH AND CONT PULSE OX ON.
--- NOTE | 2024-02-18 05:02 | NUR ---
SHIFT SUMM: PT IS A 23 YO FULL CODE WHO WAS ADMITTED FOR FACIAL AND SPINE FX'S. PT HAS BEEN PAINFUL MOST OF THE EVENING. PT HAS BEEN ANGRY, IRRITABLE AND ARGUING WITH STAFF. PT WANT TO KNOW WHY HE IS NO LONGER RECEIVING HIS Q2 DILAUDID (SEE PREV NOTE). PT ALSO STATES THAT HIS METHADONE WAS NOT GIVEN TO HIM 11/30 AM BUT IT WAS DOCUMENTED. I FOUND A METHADONE PILL IN HIS BED AND REMOVED IT BECAUSE I DID NOT GIVE IT TO HIM AND I WASTED IT IN PROPER DISPOAL AND RETAIL WIRELESS SALES REPRESENTATIVE NOTIFIED. I REMOVED 2 LIDOCAINE PATHCHES FROM BOTH SHOULDER BLADES. PT HAS TAKEN SOME TYLENOL, ATIVAN, FLEXERIL AND FENTANYL THIS SHIFT BUT REFUSES TORADOL BECAUSE HE STATES "IT MAKES HIM FEEL FUNNY". PT HAS THREATNED TO LEAVE AMA A FEW TIMES THIS SHIFT BECAUSE I WAS UNABLE TO GIVE HIM HIS DILAUDID AND HE STATES THATS THE ONLY REASON WHY HE REMAINS HERE. ACCORDING TO DR'S NOTES PT IS ANTICIPATED TO D/C TODAY. PT HAS HAD AN APPETITE THIS EVENING AND HAS ENJOYED ENSURES, ICE CREAM AND PUDDING. PT ALSO REFUSED MORNING VITALS FROM [facility]. CALL LIGHT IN REACH AND PT NOW RESTING
[2024-02-18 05:16] LABS: BASOPHILS ABSOLUTE AUTO 0.07 K/mm3 (0.00-0.23); BASOPHILS PERCENT AUTO 1 % (0-2); EOSINOPHILS ABSOLUTE AUTO 0.33 K/mm3 (0.00-0.68); EOSINOPHILS PERCENT AUTO 4 % (0-6); Hematocrit 41.6 % (37.0-53.0); Hemoglobin 14.2 g/dL (13.5-17.5); IMMATURE GRAN ABSOLUTE AUTO 0.04 K/mm3 (0.00-0.10); IMMATURE GRAN PERCENT AUTO 0 % (0-1); LYMPHOCYTES ABSOLUTE AUTO 3.35 K/mm3 (0.84-5.20); LYMPHOCYTES PERCENT AUTO 37 % (21-46); MONOCYTES ABSOLUTE AUTO 1.05 K/mm3 (0.16-1.47); MONOCYTES PERCENT AUTO 12 % (4-13); Mean Corpuscular HGB Conc 34.1 g/dL (31.5-36.5); Mean Corpuscular Volume 88 fL (80-100); NEUTROPHILS ABSOLUTE AUTO 4.16 K/mm3 (1.96-9.15); NEUTROPHILS PERCENT AUTO 46 % (41-73); Platelet Count 220 K/mm3 (150-400); RDW Coefficient Variation 11.9 % (11.7-14.2); RDW Standard Deviation 38.4 fL (35.1-46.3); Red Blood Cell Count 4.73 M/mm3 (4.30-5.90)
[2024-02-18 07:41] VITALS: BP 138/97
[2024-02-18] MEDS ORDERED: Folic Acid 1 MG TAB PO SCH (09:00)
[2024-02-18] MEDS ORDERED: Thiamine HCl 100 MG Tab PO SCH (09:00)
[2024-02-18] MEDS ORDERED: Multivitamins 1 Tab PO SCH (09:00)
[2024-02-18] MEDS ORDERED: METH40 PO (11:24)
[2024-02-18] MEDS ORDERED: AMOCLA875 PO (11:25)
--- NOTE | 2024-02-18 12:44 | NUR ---
PT WAS DISVHARGED WITH ALL PAPERWORK INCLUDING CARE, NEW MEDICATIONS, AND FURTHER INSTRUCTIONS TO GET PT TO BASELINE. PT HAD NO QUESTIONS OR CONCERNS.
== END 2024-02-18 12:39 | disposition home or self-care (01) | DRG 552 ==
LOC: ER 21:39 → ERHOLD 21:40 → ICUE 21:40 → ERHOLD 21:40 → SURS 02-15 02:33 → ICUE 02-15 04:15 → MEDS 02-15 21:58
PROVIDERS: Emergency Medicine; Internal Medicine; ADMIT Surgery
PROC: 3E0234Z Introduction of Serum, Toxoid and Vaccine into Muscle, Percutaneous Approach (ICD-10-PCS; principal; 2024-02-14)
PROC: 0CQ0XZZ Repair Upper Lip, External Approach (ICD-10-PCS; 2024-02-14)
PROC: 0CM Mouth and Throat, Reattachment (ICD-10-PCS; 2024-02-14)
DX: S12.600A Unspecified displaced fracture of seventh cervical vertebra, initial encounter for closed fracture (principal); S02.401A Maxillary fracture, unspecified side, initial encounter for closed fracture; S22.019A Unspecified fracture of first thoracic vertebra, initial encounter for closed fracture; S22.029A Unspecified fracture of second thoracic vertebra, initial encounter for closed fracture; S01.81XA Laceration without foreign body of other part of head, initial encounter; Z23 Encounter for immunization; F90.9 Attention-deficit hyperactivity disorder, unspecified type; F41.9 Anxiety disorder, unspecified; S03.2XXA Dislocation of tooth, initial encounter; G43.909 Migraine, unspecified, not intractable, without status migrainosus; F32.9 Major depressive disorder, single episode, unspecified; S01.511A Laceration without foreign body of lip, initial encounter; F10.129 Alcohol abuse with intoxication, unspecified; F15.10 Other stimulant abuse, uncomplicated; F11.10 Opioid abuse, uncomplicated; F12.10 Cannabis abuse, uncomplicated; K21.9 Gastro-esophageal reflux disease without esophagitis; Z79.899 Other long term (current) drug therapy; Z88.8 Allergy status to other drugs, medicaments and biological substances; Z87.11 Personal history of peptic ulcer disease; Y04.8XXA Assault by other bodily force, initial encounter
CPT/HCPCS: 12052; 36415; 70450; 70486; 70498; 71260; 72125; 74177; 80048; 80053; 80320; 85025; 90471; 90715; 93005; 93010; 94762; 96374; 96375; 99285-25; A9270; G0378; J1171; J1885; J2060; J2250; J3010; J3480; J7030; J7050; Q9967

== ENCOUNTER 2024-03-04 13:50 | Emergency (ER) | payer OTHER ==
[~2024-03-04] VITALS: Ht 177.8 cm; Wt 70.3 kg
[~2024-03-04 13:50] MED LIST changes: +ATOMOXETINE HC100 MG PO; +MIRT15ST PO; +MIRTAZAPINE7.5 M1 PO
[2024-03-04 14:33] VITALS: BP 135/87
[2024-03-04] MEDS ORDERED: Methadone HCL 10 MG TAB PO ONE (15:40)
== END 2024-03-04 15:52 | disposition home or self-care (01) ==
LOC: ER 13:50
DX: Z76.89 Persons encountering health services in other specified circumstances (principal); F11.20 Opioid dependence, uncomplicated; G43.909 Migraine, unspecified, not intractable, without status migrainosus; K21.9 Gastro-esophageal reflux disease without esophagitis; Z87.11 Personal history of peptic ulcer disease; Z88.8 Allergy status to other drugs, medicaments and biological substances; Z79.899 Other long term (current) drug therapy; Z59.89 Other problems related to housing and economic circumstances
CPT/HCPCS: 99281; A9270

== ENCOUNTER 2024-03-15 13:23 | Emergency (ER) | payer OTHER ==
[~2024-03-15] VITALS: Ht 177.8 cm; Wt 59.0 kg
[2024-03-15 15:09] VITALS: BP 128/85
[2024-03-15] MEDS ORDERED: Methadone HCL 10 MG TAB PO ONE (16:00)
== END 2024-03-15 16:13 | disposition home or self-care (01) ==
LOC: ER 13:23
DX: F11.91 Opioid use, unspecified, in remission (principal); Z76.0 Encounter for issue of repeat prescription; G43.909 Migraine, unspecified, not intractable, without status migrainosus; F17.200 Nicotine dependence, unspecified, uncomplicated
CPT/HCPCS: 99281; A9270

== ENCOUNTER 2024-03-16 10:56 | Emergency (ER) | payer OTHER ==
[~2024-03-16] VITALS: Ht 177.8 cm; Wt 68.0 kg
[2024-03-16] MEDS ORDERED: Methadone HCL 10 MG TAB PO ONE (11:30)
[2024-03-16 11:54] VITALS: BP 141/94
== END 2024-03-16 12:24 | disposition home or self-care (01) ==
LOC: ER 10:56
DX: Z76.89 Persons encountering health services in other specified circumstances (principal); F11.91 Opioid use, unspecified, in remission; F17.200 Nicotine dependence, unspecified, uncomplicated
CPT/HCPCS: 99281; A9270

== ENCOUNTER 2024-03-17 17:01 | Emergency (ER) | payer OTHER ==
[~2024-03-17] VITALS: Ht 177.8 cm; Wt 68.0 kg
[2024-03-17] MEDS ORDERED: Methadone HCL 10 MG TAB PO ONE (17:10)
[2024-03-17 17:12] VITALS: BP 136/78
== END 2024-03-17 17:20 | disposition home or self-care (01) ==
LOC: ER 17:01
DX: Z76.0 Encounter for issue of repeat prescription (principal); G43.909 Migraine, unspecified, not intractable, without status migrainosus; K21.9 Gastro-esophageal reflux disease without esophagitis; F11.90 Opioid use, unspecified, uncomplicated; Z88.8 Allergy status to other drugs, medicaments and biological substances; Z79.899 Other long term (current) drug therapy
CPT/HCPCS: 99281; A9270

== ENCOUNTER 2024-04-02 15:22 | Emergency (ER) | payer OTHER ==
[~2024-04-02] VITALS: Ht 177.8 cm; Wt 68.0 kg
[2024-04-02 15:31] VITALS: BP 112/85
[2024-04-02] MEDS ORDERED: Methadone HCL 10 MG TAB PO ONE ×2 (15:40)
== END 2024-04-02 16:44 | disposition home or self-care (01) ==
LOC: ER 15:22
DX: Z76.89 Persons encountering health services in other specified circumstances (principal); F32.A Depression, unspecified; F11.90 Opioid use, unspecified, uncomplicated; Z88.1 Allergy status to other antibiotic agents; Z88.8 Allergy status to other drugs, medicaments and biological substances; Z79.899 Other long term (current) drug therapy
CPT/HCPCS: 99281; A9270

== ENCOUNTER 2024-04-22 17:16 | Emergency (ER) | payer OTHER ==
[~2024-04-22] VITALS: Ht 177.8 cm; Wt 68.0 kg
[2024-04-22] MEDS ORDERED: Methadone HCL 10 MG TAB PO ONE (17:40)
[2024-04-22 17:48] VITALS: BP 116/75
== END 2024-04-22 17:53 | disposition home or self-care (01) ==
LOC: ER 17:16
DX: Z76.89 Persons encountering health services in other specified circumstances (principal); F11.90 Opioid use, unspecified, uncomplicated; F17.200 Nicotine dependence, unspecified, uncomplicated; Z88.8 Allergy status to other drugs, medicaments and biological substances; Z79.899 Other long term (current) drug therapy
CPT/HCPCS: 99281; A9270

== ENCOUNTER 2024-05-01 14:04 | Emergency (ER) | payer OTHER ==
[~2024-05-01] VITALS: Ht 175.3 cm; Wt 68.0 kg
[2024-05-01 14:23] VITALS: BP 146/87
== END 2024-05-01 15:10 | disposition left against medical advice (07) ==
LOC: ER 14:04
DX: F11.10 Opioid abuse, uncomplicated (principal); Z02.9 Encounter for administrative examinations, unspecified; F90.9 Attention-deficit hyperactivity disorder, unspecified type; F41.9 Anxiety disorder, unspecified
CPT/HCPCS: 99281

== ENCOUNTER 2024-08-25 14:57 | Emergency (ER) | payer OTHER ==
[~2024-08-25] VITALS: Ht 175.3 cm; Wt 81.7 kg
[2024-08-25 15:15] VITALS: BP 147/99
[2024-08-25] MEDS ORDERED: Methadone HCL 10 MG TAB PO ONE (15:20)
== END 2024-08-25 15:36 | disposition home or self-care (01) ==
LOC: ER 14:57
DX: Z76.0 Encounter for issue of repeat prescription (principal); G43.909 Migraine, unspecified, not intractable, without status migrainosus; F17.200 Nicotine dependence, unspecified, uncomplicated; Z79.899 Other long term (current) drug therapy; Z88.8 Allergy status to other drugs, medicaments and biological substances
CPT/HCPCS: 99281; A9270

== ENCOUNTER 2024-08-27 19:49 | Emergency (ER) | payer OTHER ==
[~2024-08-27] VITALS: Ht 175.3 cm; Wt 77.1 kg
[2024-08-27 20:57] VITALS: BP 151/91
== END 2024-08-27 21:50 | disposition home or self-care (01) ==
LOC: ER 19:49
DX: Z76.0 Encounter for issue of repeat prescription (principal); Z88.8 Allergy status to other drugs, medicaments and biological substances; Z79.2 Long term (current) use of antibiotics; Z79.899 Other long term (current) drug therapy; Z79.891 Long term (current) use of opiate analgesic
CPT/HCPCS: 99281

== ENCOUNTER 2024-09-23 13:42 | Emergency (ER) | payer OTHER ==
[~2024-09-23] VITALS: Ht 175.3 cm; Wt 72.6 kg
[2024-09-23 14:11] VITALS: BP 141/91
== END 2024-09-23 15:05 | disposition home or self-care (01) ==
LOC: ER 13:42
DX: Z76.89 Persons encountering health services in other specified circumstances (principal); F11.20 Opioid dependence, uncomplicated; G43.909 Migraine, unspecified, not intractable, without status migrainosus; K21.9 Gastro-esophageal reflux disease without esophagitis; F17.200 Nicotine dependence, unspecified, uncomplicated; Z87.11 Personal history of peptic ulcer disease; Z88.8 Allergy status to other drugs, medicaments and biological substances; Z79.899 Other long term (current) drug therapy
CPT/HCPCS: 99281; A9270

== ENCOUNTER 2024-09-24 12:03 | Emergency (ER) | payer OTHER ==
[~2024-09-24] VITALS: Ht 175.3 cm; Wt 72.6 kg
[2024-09-24 12:48] VITALS: BP 119/78
== END 2024-09-24 12:52 | disposition home or self-care (01) ==
LOC: ER 12:03
DX: Z76.89 Persons encountering health services in other specified circumstances (principal); F11.20 Opioid dependence, uncomplicated; G43.909 Migraine, unspecified, not intractable, without status migrainosus; I10 Essential (primary) hypertension; F17.200 Nicotine dependence, unspecified, uncomplicated; Z88.8 Allergy status to other drugs, medicaments and biological substances; Z79.899 Other long term (current) drug therapy; Z59.89 Other problems related to housing and economic circumstances
CPT/HCPCS: 99281; A9270

== ENCOUNTER 2024-10-19 11:13 | Emergency (ER) | payer OTHER ==
[~2024-10-19] VITALS: Ht 177.8 cm; Wt 70.3 kg
[2024-10-19 11:17] VITALS: BP 124/75
== END 2024-10-19 13:17 | disposition home or self-care (01) ==
LOC: ER 11:13
DX: F11.90 Opioid use, unspecified, uncomplicated (principal); Z76.0 Encounter for issue of repeat prescription; Z88.8 Allergy status to other drugs, medicaments and biological substances; K21.9 Gastro-esophageal reflux disease without esophagitis; Z79.899 Other long term (current) drug therapy; Z79.2 Long term (current) use of antibiotics; Z59.89 Other problems related to housing and economic circumstances; F17.200 Nicotine dependence, unspecified, uncomplicated
CPT/HCPCS: 99281; A9270

== ENCOUNTER 2024-11-02 12:28 | Emergency (ER) | payer OTHER ==
[~2024-11-02] VITALS: Ht 177.8 cm; Wt 72.6 kg
[2024-11-02 13:38] VITALS: BP 122/83
== END 2024-11-02 14:50 | disposition home or self-care (01) ==
LOC: ER 12:28
DX: F11.90 Opioid use, unspecified, uncomplicated (principal); Z76.0 Encounter for issue of repeat prescription
CPT/HCPCS: 99281; A9270

== ENCOUNTER 2025-01-11 12:39 | Emergency (ER) | payer OTHER ==
[~2025-01-11] VITALS: Ht 175.3 cm; Wt 70.3 kg
[2025-01-11 13:21] VITALS: BP 128/84
== END 2025-01-11 13:30 | disposition home or self-care (01) ==
LOC: ER 12:39
DX: F11.90 Opioid use, unspecified, uncomplicated (principal); Z51.81 Encounter for therapeutic drug level monitoring; I10 Essential (primary) hypertension; K21.9 Gastro-esophageal reflux disease without esophagitis; Z79.899 Other long term (current) drug therapy
CPT/HCPCS: 99281; A9270

== ENCOUNTER 2025-01-13 11:20 | Emergency (ER) | payer OTHER ==
[~2025-01-13] VITALS: Ht 177.8 cm; Wt 70.3 kg
[2025-01-13 11:30] VITALS: BP 149/112
== END 2025-01-13 12:02 | disposition home or self-care (01) ==
LOC: ER 11:20
DX: F11.90 Opioid use, unspecified, uncomplicated (principal); Z76.0 Encounter for issue of repeat prescription; K21.9 Gastro-esophageal reflux disease without esophagitis; I10 Essential (primary) hypertension; Z79.899 Other long term (current) drug therapy
CPT/HCPCS: 99281

== ENCOUNTER 2025-02-10 11:49 | Emergency (ER) | payer OTHER ==
[~2025-02-10] VITALS: Ht 177.8 cm; Wt 70.3 kg
[2025-02-10 12:19] VITALS: BP 129/109
== END 2025-02-10 14:45 | disposition home or self-care (01) ==
LOC: ER 11:49
DX: F15.10 Other stimulant abuse, uncomplicated (principal); I10 Essential (primary) hypertension; G43.909 Migraine, unspecified, not intractable, without status migrainosus; Z76.0 Encounter for issue of repeat prescription; F17.200 Nicotine dependence, unspecified, uncomplicated; Z88.8 Allergy status to other drugs, medicaments and biological substances
CPT/HCPCS: 99281